=== PATIENT | female | born 1950 | race Caucasian/White ===

== ENCOUNTER 2016-08-31 13:10 | Emergency (ER) | payer OTHER ==
[~2016-08-31] VITALS: Ht 157.5 cm; Wt 65.9 kg
[~2016-08-31 13:10] MED LIST: ASPI325T45 PO; CALCTAB5 PO; CHOL100027 PO; FELO1TAB7 PO; GABA1CAP4 PO; HYDR12.55 PO; MIRT30TA3 PO; OXYC-409 PO; OXYC-57 PO
[2016-08-31 13:12] VITALS: TEMP 37.1; Ht 157.5 cm; Wt 65.9 kg
--- NOTE | 2016-08-31 14:08 | EMERGENCY ROOM VISIT NOTE ---
History First contact with patient: 13:23 Chief Complaint: SWELLING TO EXTREMITY Stated Complaint: SWELLING TO LEFT FOOT History of Present Illness The patient is a 65 year old female who presents to the Emergency Room via private vehicle referred by her family doctor with complaints of "swelling to left foot". The patient states that beginning a few days ago she noticed swelling in the left ankle and proximal foot region. She states that there has been no trauma or injury to the area. She notes minimal pain. She points to the medial aspect of the inferior left medial malleolus as the area of minimal pain. She states this is only unilateral. She does smoke. She does not take any anticoagulants, denies chest pain, shortness of breath, history of blood clots, fevers or chills. When questioned about her hypoxia, she states that she does not feel short of breath, however for the past few evenings when she lies down she notes postnasal drip creating a sensation of drowning. She states that she saw her family doctor today, Dr. Mejia who referred her here to the emergency department. She states that she has a history of septic joint in the past, and is concerned. Review of Systems A complete 10-point Review of Systems was discussed with the patient, with pertinent positives and negatives listed in the History of Present Illness. All remaining Review of Systems questions can be considered negative unless otherwise specified. Past Medical/Surgical History Medical Problems: (1) 305.1 (2) ADJUSTMENT DISORDER WITH DEPRESSED MOOD (3) Backache (4) Chronic kidney disease stage 3 (5) Closed fracture of vertebral column (6) Diverticulitis of colon (7) Essential hypertension (8) Hyperlipidemia (9) Intercostal neuralgia (10) Osteoporosis Social History Smoking Status: Current Some Day Smoker Alcohol Use: none Marital Status: Current/Historical Medications Scheduled Aspirin (Aspirin), 325 MG PO DAILY Calcium Carbonate-Vitamin D W/ (Caltrate 600 Plus), 600 MG PO DAILY Cholecalciferol (Vitamin D 1000 Unit), 1,000 INTER.UNIT PO DAILY Felodipine (Plendil), 2.5 MG PO DAILY Gabapentin (Gabapentin), 600 MG PO BID Hydrochlorothiazide (Hydrochlorothiazide), 12.5 MG PO DAILY Scheduled PRN Mirtazapine (Remeron), 30 MG PO HS PRN for Sleep Oxycodone Hcl (Oxycontin), 20 MG PO TID PRN for Pain Oxycodone/Acetaminophen 5MG/325MG (Percocet 5MG/325MG), 1 TAB PO QID PRN for Pain Allergies Coded Allergies: Cholesterol (Verified Allergy, Unknown, CHOLESTEROL MEDS, 08/31/16) Acetaminophen (Verified Adverse Reaction, Mild, NAUSEA AND ITCHING, ) Codeine (Verified Adverse Reaction, Mild, N/V, 08/31/16) Hydrocodone (Verified Adverse Reaction, Mild, NAUSEA AND ITCHING, 08/31/16) Tetracycline (Verified Adverse Reaction, Mild, N/V, 08/31/16) Physical Exam Vital Signs Date Time Temp Pulse Resp B/P (MAP) Pulse Ox O2 Delivery O2 Flow Rate FiO2 08/31/16 18:06 64 18 189/107 96 08/31/16 16:48 65 16 163/107 95 Room Air 08/31/16 13:12 37.1 79 20 130/90 92 Room Air Physical Exam VITAL SIGNS - Vital signs and nursing notes were reviewed. Patient is afebrile , blood pressure slightly elevated at 130/90, non-tachycardic and is saturating on room air 92%. GENERAL -65-year-old female appearing her stated age who is in no acute distress. Communicates well with provider and answers questions appropriately. SKIN - Without rashes. There is edema noted to the left ankle diffusely as well as the proximal foot. There is no excessive warmth, or erythema. No evidence of excoriation or laceration. LUNGS - Chest wall symmetric without accessory muscle use, intercostals retractions, or central cyanosis. Normal vesicular breath sounds CTA B/L. No wheezes, rales, or rhonchi appreciated. CARDIAC - RRR with S1/S2. No murmur, rubs, or gallops appreciated. EXTREMITIES - No clubbing or peripheral cyanosis. No pretibial edema present. She is neurovascularly intact in the left lower extremity. +5/5 strength noted in UE/LE bilaterally. Medical Decision & Procedures ER Provider Diagnostic Interpretation: CHEST ONE VIEW PORTABLE CLINICAL HISTORY: Low oxygen saturation, unilateral extremity edema COMPARISON STUDY: No previous studies for comparison. FINDINGS: The heart is mildly enlarged. There is tortuosity/ectasia of the thoracic aorta. There is no failure. There is no lobar consolidation. Linear bibasilar opacities are likely atelectatic. There are no pleural effusions. There is an old right clavicular deformity.[ IMPRESSION: 1. Cardiomegaly 2. Aortic tortuosity/ectasia 3. Bibasilar atelectasis/scarring Electronically signed by: João Whitehead M.D. 08/31/2016 2:10 PM Dictated Date/Time: 08/31/2016 2:09 PM LEFT ANKLE MIN 3 VIEWS ROUTINE CLINICAL HISTORY: Left foot/ ankle edema, No trauma. Hx septic joint. COMPARISON: None. DISCUSSION: There is bimalleolar soft tissue swelling. There is a linear avulsion fracture arising from the dorsal surface of the navicular. This is likely old. Please correlate with the patient's site of pain. IMPRESSION: 1. Linear avulsion fracture arising from the dorsal surface of the navicular. This is likely old 2. Soft tissue swelling 3. No fractures of the ankle proper are visualized. Electronically signed by: João Whitehead M.D. 08/31/2016 2:12 PM Dictated Date/Time: 08/31/2016 2:10 PM LEFT FOOT MIN 3 VIEWS ROUTINE CLINICAL HISTORY: Left foot/ ankle edema, No trauma. Hx septic joint. Pain COMPARISON: None. DISCUSSION: Mild soft tissue edema. Moderate degenerative change of the articular services throughout. No evidence for acute bony abnormality. Bunion deformity distal first metatarsal with hallux valgus configuration. There is no evidence for soft tissue swelling. IMPRESSION: Degenerative change. Soft tissue edema. No acute bony abnormality. The above report was generated using voice recognition software. It may contain grammatical, syntax or spelling errors. Electronically signed by: Luis Galloway M.D. 08/31/2016 2:11 PM Dictated Date/Time: 08/31/2016 2:10 PM ULTRASOUND LEFT VENOUS DOPP LOWER EXT UNILAT CLINICAL HISTORY: Left leg edema COMPARISON STUDY: No previous studies for comparison. FINDINGS: Real-time and color flow Doppler imaging were performed. Flow was seen within the femoral, popliteal and calf veins with no intraluminal thrombus demonstrated. The saphenous vein is patent. There are patent left calf varicosities. There is a left inguinal lymph node measuring 22 x 16 x 8 mm. IMPRESSION: No evidence of left lower extremity DVT. Electronically signed by: João Whitehead M.D. 08/31/2016 3:35 PM Dictated Date/Time: 08/31/2016 3:34 PM Laboratory Results 08/31/16 16:40 Red Blood Count 3.92, Mean Corpuscular Volume 93.6, Mean Corpuscular Hemoglobin 31.4, Mean Corpuscular Hemoglobin Concent 33.5, Mean Platelet Volume 9.5, Neutrophils (%) (Auto) 52.3, Lymphocytes (%) (Auto) 37.1, Monocytes (%) (Auto) 6.3, Eosinophils (%) (Auto) 3.3, Basophils (%) (Auto) 1.0, Neutrophils # (Auto) 3.59, Lymphocytes # (Auto) 2.55, Monocytes # (Auto) 0.43, Eosinophils # (Auto) 0.23, Basophils # (Auto) 0.07 08/31/16 16:40 Test 08/31/16 16:40 White Blood Count 6.87 K/uL (4.8-10.8) Red Blood Count 3.92 M/uL (4.2-5.4) Hemoglobin 12.3 g/dL (12.0-16.0) Hematocrit 36.7 % (37-47) Mean Corpuscular Volume 93.6 fL (80-100) Mean Corpuscular Hemoglobin 31.4 pg (25-34) Mean Corpuscular Hemoglobin Concent 33.5 g/dl (32-36) Platelet Count 224 K/uL (130-400) Mean Platelet Volume 9.5 fL (7.4-10.4) Neutrophils (%) (Auto) 52.3 % Lymphocytes (%) (Auto) 37.1 % Monocytes (%) (Auto) 6.3 % Eosinophils (%) (Auto) 3.3 % Basophils (%) (Auto) 1.0 % Neutrophils # (Auto) 3.59 K/uL (1.4-6.5) Lymphocytes # (Auto) 2.55 K/uL (1.2-3.4) Monocytes # (Auto) 0.43 K/uL (0.11-0.59) Eosinophils # (Auto) 0.23 K/uL (0-0.5) Basophils # (Auto) 0.07 K/uL (0-0.2) RDW Standard Deviation 46.2 fL (36.4-46.3) RDW Coefficient of Variation 13.6 % (11.5-14.5) Immature Granulocyte % (Auto) 0.0 % Immature Granulocyte # (Auto) 0.00 K/uL (0.00-0.02) Anion Gap 6.0 mmol/L (3-11) Est Creatinine Clear Calc Drug Dose 58.7 ml/min Estimated GFR () 83.9 Estimated GFR (Non- 72.4 BUN/Creatinine Ratio 21.3 (10-20) Calcium Level 9.7 mg/dl (8.5-10.1) Magnesium Level 1.7 mg/dl (1.8-2.4) Total Bilirubin 0.2 mg/dl (0.2-1) Aspartate Amino Transf (AST/SGOT) 44 U/L (15-37) Alanine Aminotransferase (ALT/SGPT) 43 U/L (12-78) Alkaline Phosphatase 105 U/L (45-117) Total Protein 7.7 gm/dl (6.4-8.2) Albumin 4.0 gm/dl (3.4-5.0) Globulin 3.7 gm/dl (2.5-4.0) Albumin/Globulin Ratio 1.1 (0.9-2) Medications Administered Medications (Trade) Dose Ordered Sig/Kyra Route Start Time Stop Time Status Last Admin Dose Admin Oxycodone/ Acetaminophen (Percocet 5-325mg Tab) 1 tab NOW STAT PO 08/31/16 17:16 08/31/16 17:17 DC 08/31/16 17:24 1 TAB Medical Decision Patient was seen and evaluated as above. After obtaining a thorough history and physical examination radiographs was obtained of the chest, foot and ankle. Chest x-ray was obtained because the patient noted that the past few days she felt that when she laid down she felt as though she may be drowning. She states this is likely secondary to her postnasal drip. X-rays show a questionable avulsion fracture, which I do not believe is new. The patient denies any recent injury or trauma. There is only minimal pain. Patient is more concerned about the swelling. I discussed the case with my attending, who also personally evaluated the patient. Decision was made to obtain baseline labs. CBC reveals no leukocytosis, slight anemia noted. Sodium slightly low at 134, creatinine 0.84, mag slightly low at 1.4 and AST high at 44. I suspect the patient is likely experiencing soft tissue swelling other secondary to a small injury without fracture however the exact etiology is not identified. I do not suspect any emergent etiology or infection. No evidence of DVT. Patient is to elevate this region and use ice and NSAIDs over the next few days. She is to return with worsening. She is to follow-up with her family doctor soon as possible. She was educated upon worrisome symptoms which to return, had questions were discharge, and was discharged home in good condition. I would like to specifically state that I do not suspect septic joint in this case. In evaluation treatment this patient following differential diagnoses were entertained: DVT, PE, CHF, septic joint, among others. Impression Primary Impression: Swelling of left extremity Departure Information Dispostion Home / Self-Care Condition GOOD Referrals Bishnu Mejia M.D. (PCP) Patient Instructions My [facility] Additional Instructions You have been treated in the Emergency Department for a left Ankle swelling/ foot swelling. You have received pain medicine in the emergency department which impairs your ability to operate a vehicle. It is illegal for you to drive after receiving these medicines. For pain control, you can use the following [id number] medicines (if >12 yo): Please do not take tylenol with the perocet you were previously prescribed. - Regular strength (200 mg/tab) Advil (ibuprofen) 1-2 tabs every 4-6 hours as needed. Do not exceed a dose of 3200 mg per day. If this is a recent injury (<24 hrs), ice can be applied to the area of pain for the first 3 days to help decrease pain and inflammation. Please call your family doctor to schedule follow-up regarding today's visit. Please elevate and ice your foot as able. Return to the Emergency Department if your current symptoms worsen despite treatment course outlined above, or if you develop any of the following symptoms : intractable pain despite aforementioned treatment course or new onset of numbness or tingling of the foot. Please return to the emergency department with any new/concerning symptoms.
--- NOTE | 2016-08-31 14:11 | DIAGNOSTIC IMAGING REPORT ---
CHEST ONE VIEW PORTABLE CLINICAL HISTORY: Low oxygen saturation, unilateral extremity edema COMPARISON STUDY: No previous studies for comparison. FINDINGS: The heart is mildly enlarged. There is tortuosity/ectasia of the thoracic aorta. There is no failure. There is no lobar consolidation. Linear bibasilar opacities are likely atelectatic. There are no pleural effusions. There is an old right clavicular deformity.[ IMPRESSION: 1. Cardiomegaly 2. Aortic tortuosity/ectasia 3. Bibasilar atelectasis/scarring Electronically signed by: João Whitehead M.D. 08/31/2016 2:10 PM Dictated Date/Time: 08/31/2016 2:09 PM
--- NOTE | 2016-08-31 14:12 | DIAGNOSTIC IMAGING REPORT ---
LEFT FOOT MIN 3 VIEWS ROUTINE CLINICAL HISTORY: Left foot/ ankle edema, No trauma. Hx septic joint. Pain COMPARISON: None. DISCUSSION: Mild soft tissue edema. Moderate degenerative change of the articular services throughout. No evidence for acute bony abnormality. Bunion deformity distal first metatarsal with hallux valgus configuration. There is no evidence for soft tissue swelling. IMPRESSION: Degenerative change. Soft tissue edema. No acute bony abnormality. The above report was generated using voice recognition software. It may contain grammatical, syntax or spelling errors. Electronically signed by: Luis Galloway M.D. 08/31/2016 2:11 PM Dictated Date/Time: 08/31/2016 2:10 PM
--- NOTE | 2016-08-31 14:13 | DIAGNOSTIC IMAGING REPORT ---
LEFT ANKLE MIN 3 VIEWS ROUTINE CLINICAL HISTORY: Left foot/ ankle edema, No trauma. Hx septic joint. COMPARISON: None. DISCUSSION: There is bimalleolar soft tissue swelling. There is a linear avulsion fracture arising from the dorsal surface of the navicular. This is likely old. Please correlate with the patient's site of pain. IMPRESSION: 1. Linear avulsion fracture arising from the dorsal surface of the navicular. This is likely old 2. Soft tissue swelling 3. No fractures of the ankle proper are visualized. Electronically signed by: João Whitehead M.D. 08/31/2016 2:12 PM Dictated Date/Time: 08/31/2016 2:10 PM
[2016-08-31] MEDS ORDERED: CALCTAB7 PO (14:34)
[2016-08-31] MEDS ORDERED: OXYC20TA50 PO (14:35)
--- NOTE | 2016-08-31 15:36 | DIAGNOSTIC IMAGING REPORT ---
ULTRASOUND LEFT VENOUS DOPP LOWER EXT UNILAT CLINICAL HISTORY: Left leg edema COMPARISON STUDY: No previous studies for comparison. FINDINGS: Real-time and color flow Doppler imaging were performed. Flow was seen within the femoral, popliteal and calf veins with no intraluminal thrombus demonstrated. The saphenous vein is patent. There are patent left calf varicosities. There is a left inguinal lymph node measuring 22 x 16 x 8 mm. IMPRESSION: No evidence of left lower extremity DVT. Electronically signed by: João Whitehead M.D. 08/31/2016 3:35 PM Dictated Date/Time: 08/31/2016 3:34 PM
--- NOTE | 2016-08-31 16:19 | EMERGENCY ROOM VISIT NOTE ---
ED Visit Note First contact with patient: 13:23 65-year-old female with marked swelling of her left leg is fully evaluated by Juan R Holt PA-C. Please see his note. I also independently evaluated the patient. The patient does not appear to have a DVT on ultrasound. She does have an enlarged left inguinal node which may be causing some of the swelling. Blood work was also evaluated.
[2016-08-31 16:54] LABS: BASO ABS # 0.07 K/uL (0-0.2); COMPLETE YES; EOS % 3.3 %; HEMATOCRIT 36.7 % (37-47); LYMPH % 37.1 %; LYMPH ABS # 2.55 K/uL (1.2-3.4); MEAN CELL VOLUME 93.6 fL (80-100); MEAN CORPUSCULAR HEMOGLOBIN 31.4 pg (25-34); MEAN CORPUSCULAR HGB CONC 33.5 g/dl (32-36); MEAN PLATELET VOLUME 9.5 fL (7.4-10.4); MONO % 6.3 %; NEUT % 52.3 %; PLATELET COUNT 224 K/uL (130-400); RED BLOOD COUNT 3.92 M/uL (4.2-5.4); WHITE BLOOD COUNT 6.87 K/uL (4.8-10.8)
[2016-08-31] MEDS ORDERED: OXYCODONE/ACETAMINOPHEN 5-325 TAB PO STA (17:16)
[2016-08-31 17:21] LABS: BUN/CREATININE RATIO 21.3 (10-20); CALCIUM 9.7 mg/dl (8.5-10.1); CREATININE 0.84 mg/dl (0.60-1.20); MAGNESIUM 1.7 mg/dl (1.8-2.4); POTASSIUM 3.6 mmol/L (3.5-5.1)
[2016-08-31 17:24] LABS: ALB/GLOB RATIO 1.1 (0.9-2)
[2016-08-31 18:06] VITALS: BP 189/107; PULSE 64; O2SAT 96
== END 2016-08-31 18:06 | disposition home or self-care (01) ==
LOC: C.EDB 13:13 → C.EDD 18:06
DX: M79.89 Other specified soft tissue disorders (principal); N18.3 Chronic kidney disease, stage 3 (moderate); I12.9 Hypertensive chronic kidney disease with stage 1 through stage 4 chronic kidney disease, or unspecified chronic kidney disease; K57.92 Diverticulitis of intestine, part unspecified, without perforation or abscess without bleeding; E78.5 Hyperlipidemia, unspecified; F43.21 Adjustment disorder with depressed mood; M81.0 Age-related osteoporosis without current pathological fracture; F17.210 Nicotine dependence, cigarettes, uncomplicated; Z79.82 Long term (current) use of aspirin; Z79.899 Other long term (current) drug therapy

== ENCOUNTER 2018-07-17 14:38 | Inpatient (IN) ==
--- OUTSIDE RECORDS SUMMARY | 2018-07-17 14:40 | External Medical Summary | Continuity of Care Document ---
:1950 Author Name Maia Nielson, Provider Address Unavailable Unavailable , Care Team Providers Name Role Phone Kae Schulz M.D. Unavailable [email or web address] Unavailable Unavailable Problems Active medical history not documented Allergies and Adverse Reactions Allergy history not documented Medications Medications not documented Procedures Procedures not documented Immunizations Immunizations not documented Plan of Treatment Planned Observations Planned Goals not documented Results No Known Results Results not documented
[2018-07-17] MEDS ORDERED: NALOXONE HCL 0.4 MG/1 ML VIAL/CARP IV STA (14:53)
[2018-07-17] MEDS ORDERED: SODIUM CHLORIDE 0.9% 1000ML 1,000 ML IV SCH (15:00)
[2018-07-17 15:49] LABS: Basophils # (auto) 0.03 K/uL (0-0.2); Basophils % (auto) 0.3 %; Eosinophils # (auto) 0.07 K/uL (0-0.5); Eosinophils % (auto) 0.7 %; Hematocrit (blood only) 34.1 % (37-47); Hemoglobin 11.9 g/dL (12.0-16.0); Immature Granulocytes # (auto) 0.02 K/uL (0.00-0.02); Immature Granulocytes % (auto) 0.2 %; Lymphocytes # (auto) 1.92 K/uL (1.2-3.4); Lymphocytes % (auto) 18.6 %; Mean Corpuscular Hgb Conc 34.9 g/dL (32-36); Mean Corpuscular Volume 87.7 fL (80-100); Mean Platelet Volume 9.8 fL (7.4-10.4); Monocytes # (auto) 0.71 K/uL (0.11-0.59); Monocytes % (auto) 6.9 %; Neutrophils % (auto) 73.3 %; Platelet Count 212 K/uL (130-400); RDW Coefficient of Variation 13.6 % (11.5-14.5); RDW Standard Deviation 43.4 fL (36.4-46.3); Red Blood Count 3.89 M/uL (4.2-5.4); White Blood Count 10.35 K/uL (4.8-10.8)
[2018-07-17 16:08] LABS: Albumin Level 4.3 gm/dl (3.4-5.0); BUN Creatinine Ratio 12.9 (10-20); Calcium 8.8 mg/dl (8.5-10.1); Creatinine Clr Calc Pharmacy 12.4 ml/min; Est GFR (African American) 12.2; Est GFR (Non-African American) 10.6; Magnesium 1.3 mg/dl (1.8-2.4); Potassium 3.2 mmol/L (3.5-5.1)
[2018-07-17 16:18] LABS: Albumin Globulin Ratio 1.2 (0.9-2); Bilirubin,Total 0.4 mg/dl (0.2-1); Globulin 3.5 gm/dl (2.5-4.0); Total Protein 7.8 gm/dl (6.4-8.2)
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
--- NOTE | 2018-07-17 16:52 | XRay Report ---
SINGLE VIEW CHEST CLINICAL HISTORY: Generalized weakness. FINDINGS: 2 AP, portable, upright chest radiographs are compared to study dated 08/31/2016. Correlatio n is made with CT scan of the thoracic spine dated 02/14/2012. The examination is degraded by portabl e technique and patient rotation. The cardiomediastinal heart is enlarged there is atherosclerotic c alcification with uncoiling of the thoracic aorta. Mild aneurysmal dilatation of the ascending thorac ic aorta is likely unchanged from previous. The pulmonary vasculature is noncongested. There is bibas ilar scarring/atelectasis. No airspace consolidation or large pleural effusion is identified. No pneu mothorax is seen. The skeletal structures are osteopenic. There is chronic posttraumatic deformity of the right clavicle. There is evidence of a compression deformity an previous vertebroplasty in the t horacic spine. IMPRESSION: 1. Cardiomegaly with no acute cardiopulmonary abnormality. 2. Mild aneurysmal dilatation is again noted involving the ascending thoracic aorta. Electronically signed by: Mateus Munoz M.D. 07/17/2018 4:51 PM
[2018-07-17 16:53] LABS: Appearance Urine Clear (Clear); Bacteria Urine Automated Negative (Negative); Bilirubin Urine Negative (Negative); Blood Urine 3+ (Negative); Color Urine Dark Yellow; Epithelial Cell Urine Auto >30 /lpf (0-5); Glucose Urine UA Negative (Negative); Ketones Urine Trace (Negative); Leukocyte Esterase Urine 2+ (Negative); Nitrite Urine Negative (Negative); Protein Urine 1+ (Negative); Specific Gravity Urine 1.015 (1.000-1.030); Urobilinogen Urine Negative (Negative)
[2018-07-17] MEDS: MAGNESIUM SULFATE / D5W 1 GM/100 ML BAG IV SCH ×2 (16:53→22:52)
[2018-07-17 17:14] LABS: Renal Epithelial Cells Urine 0-5 /lpf (0-5)
--- NOTE | 2018-07-17 17:26 | Emergency Department Note ---
Entered by Tashia Yates acting as a scribe for Silvina Paz MD History of Present Illness General Chief complaint: Illness Source: patient and other (nursing staff) History of Present Illness Provider complaint: confusion Onset (ago): hour(s) (today) Location: head Pain Consistency: + constant Quality: + other (confusion) Associated symptoms: + other (recent fall ) The patient is a 67 year old female who presents to the Emergency Department w ith confusion today. The patient states that she dropped her daughter off in [place] and then drove to [employer] today. She states that she did not eat today. The patient reports a recent fall. She states that she is unsure what time she last took her medication. Per nursing staff, the patient was found slumped over her steering wheel with the car on while parked in a cemetery visiting her nephew's grave site. Nursing staff states that the patient was holding a cigarette and had the air compressor operator on her lap. Nursing staff states that the patient was arousable. Per nursing staff, the patient has a history of hypertension and chronic back pain for which she takes oxycodone and hydrocodone. Home Medications Home Medications Medication Instructions Recorded Confirmed Type Caltrate 600-D Plus Minerals 1 tab PO DAILY 07/17/18 07/17/18 History aspirin [Aspirin Low Dose] 81 mg PO DAILY 07/17/18 07/17/18 History cholecalciferol (vitamin D3) 1,000 unit PO DAILY 07/17/18 07/17/18 History gabapentin 600 mg PO BID 07/17/18 07/17/18 History mirtazapine 22.5 mg PO DAILY 07/17/18 07/17/18 History magnesium oxide 400 mg PO QAM 30 Days #30 cap 07/19/18 Rx Allergies Allergy/AdvReac Type Severity Reaction Status Date / Time acetaminophen AdvReac Mild NAUSEA AND Verified 07/17/18 15:16 ITCHING codeine AdvReac Mild N/V Verified 07/17/18 15:16 hydrocodone AdvReac Mild NAUSEA AND Verified 07/17/18 15:16 ITCHING tetracycline AdvReac Mild N/V Verified 07/17/18 15:16 Cholesterol Allergy Unknown CHOLESTEROL Uncoded 07/17/18 15:16 MEDS Past Med/Surg History Medical History Back pain (Chronic) HTN (hypertension) (Chronic) Social History Preferred Language: [place] Communication Ability: Effective Beliefs That Will Affect Care: None Current Living Situation: Family Feels Safe at Home: Yes Smoking Status: Current every day smoker Review of Systems See HPI for pertinent positives & negatives. and A total of 10 systems reviewed and were otherwise negative Physical Exam Vital Signs Vital Signs - 24 hr 07/17/18 14:41 07/17/18 14:49 07/17/18 15:17 Temperature 36.7 C Temperature Source Oral Sepsis Recent Fever Within 48 Hours No Sepsis New/Unexplained Change in Mental Status No Sepsis Action Taken by Nursing No Action Required Pulse Rate 92 H 89 86 Pulse Rate from SpO2 Sensor 95 H 88 Respiratory Rate 19 18 28 H Respiratory Effort / Characteristics Non-Labored Respiratory Depth Normal Blood Pressure 135/104 H 134/104 H 142/96 H Blood Pressure Mean 114 114 111 Pulse Oximetry 93 88 L 96 Oxygen Delivery Method Room Air 07/17/18 15:19 07/17/18 15:30 07/17/18 15:50 Temperature Temperature Source Sepsis Recent Fever Within 48 Hours Sepsis New/Unexplained Change in Mental Status Sepsis Action Taken by Nursing Pulse Rate 87 83 Pulse Rate from SpO2 Sensor 86 79 92 H Respiratory Rate 20 23 24 Respiratory Effort / Characteristics Respiratory Depth Blood Pressure 170/113 H Blood Pressure Mean 132 Pulse Oximetry 95 86 L 98 Oxygen Delivery Method 07/17/18 15:51 07/17/18 16:10 07/17/18 16:30 Temperature Temperature Source Sepsis Recent Fever Within 48 Hours Sepsis New/Unexplained Change in Mental Status Sepsis Action Taken by Nursing Pulse Rate 79 Pulse Rate from SpO2 Sensor 92 H 81 78 Respiratory Rate 23 20 Respiratory Effort / Characteristics Respiratory Depth Blood Pressure Blood Pressure Mean Pulse Oximetry 99 96 Oxygen Delivery Method 07/17/18 16:31 Temperature Temperature Source Sepsis Recent Fever Within 48 Hours Sepsis New/Unexplained Change in Mental Status Sepsis Action Taken by Nursing Pulse Rate 80 Pulse Rate from SpO2 Sensor 79 Respiratory Rate 17 Respiratory Effort / Characteristics Respiratory Depth Blood Pressure 126/87 Blood Pressure Mean 100 Pulse Oximetry 92 Oxygen Delivery Method Vital signs reviewed. General: Well-appearing female, in no significant distress. HEENT: No scleral icterus, PERRLA, neck supple. Atraumatic. Cardiovascular: Regular rate and rhythm, no extra sounds. Pulmonary: Clear to auscultation bilaterally, normal work of breathing. Abdomen: Soft, nontender, nondistended, positive bowel sounds. Musculoskeletal: Atraumatic, no peripheral edema. Neurologic: Slurred speech. Answers most questions appropriately. Ataxia on finger to nose, left greater than right. Pinpoint pupils bilaterally. Skin: Warm, dry, no rash Course 1450: The patient was evaluated in room A9B. A history and physical were performed. 1623: I updated the patient who verbalized agreement of the treatment plan. 1627: I discussed the patient's case with La Yeh, admitting to Dr. Trejo, who will evaluate the patient for further management. Consultations Consultation #1: La Yeh Time: 16:27 Administered Medications Discontinued Medications Sodium Chloride (Nss 1000ml) 1,000 mls @ 999 mls/hr IV .Q1H1M MAHAMED Stop: 07/17/18 16:00 Last Infusion: 07/17/18 16:55 Dose: 0 mls/hr Documented by: [id number] Admin: 07/17/18 15:53 Dose: 999 mls/hr Documented by: [id number] Magnesium Sulfate/Dextrose (Magnesium Sulfate / D5w) 1 gm in 100 mls @ 100 mls/hr IV Q1H MAHAMED Stop: 07/17/18 18:29 Last Admin: 07/17/18 22:52 Dose: Not Given Documented by: [id number] Infusion: 07/17/18 17:56 Dose: 0 mls/hr Documented by: [id number] Admin: 07/17/18 16:53 Dose: 100 mls/hr Documented by: [id number] Potassium Chloride (K Wes / Wtr) 10 meq in 100 mls @ 100 mls/hr IV Q1H MAHAMED Stop: 07/17/18 18:29 Last Admin: 07/17/18 22:51 Dose: Not Given Documented by: [id number] Infusion: 07/17/18 19:03 Dose: 0 mls/hr Documented by: [id number] Admin: 07/17/18 18:01 Dose: 100 mls/hr Documented by: [id number] Sodium Chloride (Nss) 500 mls @ 100 mls/hr IV .Q5H MAHAMED Stop: 08/16/18 17:44 Last Infusion: 07/18/18 15:22 Dose: 0 mls/hr Documented by: [id number] Admin: 07/18/18 15:11 Dose: Not Given Documented by: [id number] Admin: 07/18/18 11:50 Dose: 100 mls/hr Documented by: [id number] Infusion: 07/18/18 08:24 Dose: 100 mls/hr Documented by: [id number] Admin: 07/18/18 03:24 Dose: 100 mls/hr Documented by: [id number] Infusion: 07/18/18 03:24 Dose: 100 mls/hr Documented by: [id number] Admin: 07/18/18 00:04 Dose: 100 mls/hr Documented by: [id number] Infusion: 07/18/18 00:04 Dose: 100 mls/hr Documented by: [id number] Admin: 07/17/18 20:19 Dose: 100 mls/hr Documented by: [id number] Magnesium Sulfate/Dextrose (Magnesium Sulfate / D5w) 1 gm in 100 mls @ 100 mls/hr IV ONE STA Stop: 07/17/18 22:20 Last Infusion: 07/18/18 13:37 Dose: 0 mls/hr Documented by: [id number] Infusion: 07/18/18 00:10 Dose: 0 mls/hr Documented by: [id number] Admin: 07/18/18 00:04 Dose: 100 mls/hr Documented by: [id number] Potassium Chloride (K Wes / Wtr) 10 meq in 100 mls @ 100 mls/hr IV ONE STA Stop: 07/17/18 22:20 Last Infusion: 07/17/18 23:55 Dose: 0 mls/hr Documented by: [id number] Admin: 07/17/18 22:52 Dose: 100 mls/hr Documented by: [id number] Potassium Chloride (K Wes / Wtr) 10 meq in 100 mls @ 100 mls/hr IV Q1H MAHAMED Stop: 07/18/18 04:04 Last Infusion: 07/18/18 04:25 Dose: 0 mls/hr Documented by: [id number] Admin: 07/18/18 03:23 Dose: 100 mls/hr Documented by: [id number] Infusion: 07/18/18 03:10 Dose: 100 mls/hr Documented by: [id number] Admin: 07/18/18 02:10 Dose: 100 mls/hr Documented by: [id number] Sodium Chloride (Nss 1000ml) 1,000 mls @ 80 mls/hr IV .[id number] MAHAMED Stop: 08/17/18 16:14 Last Infusion: 07/19/18 10:14 Dose: 0 mls/hr Documented by: [id number] Admin: 07/19/18 05:33 Dose: 80 mls/hr Documented by: [id number] Infusion: 07/19/18 04:56 Dose: 80 mls/hr Documented by: [id number] Admin: 07/18/18 16:26 Dose: 80 mls/hr Documented by: [id number] Magnesium Sulfate/Dextrose (Magnesium Sulfate / D5w) 1 gm in 100 mls @ 100 mls/hr IV Q1H MAHAMED Stop: 07/19/18 12:29 Last Infusion: 07/19/18 12:42 Dose: 0 mls/hr Documented by: [id number] Admin: 07/19/18 11:41 Dose: 100 mls/hr Documented by: [id number] Infusion: 07/19/18 11:39 Dose: 100 mls/hr Documented by: [id number] Admin: 07/19/18 10:39 Dose: 100 mls/hr Documented by: [id number] Potassium Acetate 10 meq/ (Sodium Chloride) 105 mls @ 105 mls/hr IV Q1H MAHAMED Stop: 07/19/18 12:29 Last Infusion: 07/19/18 12:55 Dose: 0 mls/hr Documented by: [id number] Admin: 07/19/18 11:52 Dose: 105 mls/hr Documented by: [id number] Infusion: 07/19/18 11:52 Dose: 0 mls/hr Documented by: [id number] Admin: 07/19/18 10:52 Dose: 105 mls/hr Documented by: [id number] Magnesium Oxide (Mag-Ox) 400 mg PO QAM MAHAMED Stop: 08/18/18 09:59 Last Admin: 07/19/18 10:46 Dose: 400 mg Documented by: [id number] Naloxone HCl (Narcan) 0.4 mg IV NOW STA Stop: 07/17/18 14:54 Last Admin: 07/17/18 15:53 Dose: 0.4 mg Documented by: [id number] Potassium Chloride (Klor-Con M10) 60 meq PO NOW STA Stop: 07/18/18 02:06 Last Admin: 07/18/18 03:18 Dose: 60 meq Documented by: [id number] Potassium Chloride (Klor-Con M20) 40 meq PO NOW STA Stop: 07/18/18 07:41 Last Admin: 07/18/18 08:32 Dose: 40 meq Documented by: [id number] Potassium Chloride (Klor-Con M20) 40 meq PO NOW STA Stop: 07/19/18 09:51 Last Admin: 07/19/18 10:34 Dose: 40 meq Documented by: [id number] Medical Decision Making Differential Diagnosis Differential includes acute coronary syndrome, myocardial infarction, CVA, TIA, anemia, infection, pneumonia, UTI, pyelonephritis, poor nutrition, dehydration, electrolyte disturbance,hypoglycemia. Medical Records Attestation: I reviewed the patient's medical records. Home Medications Current Medication List: was personally reviewed by me Laboratory Data Attestation: I reviewed the patient's lab results. Result diagrams: 07/19/18 06:50 07/19/18 13:56 Lab Results 07/17/18 07/17/18 07/17/18 Range/Units 15:20 15:20 15:20 WBC 10.35 (4.8-10.8) K/uL RBC 3.89 L (4.2-5.4) M/uL Hgb 11.9 L (12.0-16.0) g/dL Hct 34.1 L (37-47) % MCV 87.7 (80-100) fL MCH 30.6 (25-34) pg MCHC 34.9 (32-36) g/dL RDW Std Deviation 43.4 (36.4-46.3) fL RDW Coeff of [place] 13.6 (11.5-14.5) % Plt Count 212 (130-400) K/uL MPV 9.8 (7.4-10.4) fL Immature Gran % (Auto) 0.2 % Neut % (Auto) 73.3 % Lymph % (Auto) 18.6 % [place] % (Auto) 6.9 % Eos % (Auto) 0.7 % Baso % (Auto) 0.3 % Immature Gran # (Auto) 0.02 (0.00-0.02) K/uL Neut # (Auto) 7.60 H (1.4-6.5) K/uL Lymph # (Auto) 1.92 (1.2-3.4) K/uL [place] # (Auto) 0.71 H (0.11-0.59) K/uL Eos # (Auto) 0.07 (0-0.5) K/uL Baso # (Auto) 0.03 (0-0.2) K/uL ESR (0-21) mm/hr Sodium 126 L (136-145) mmol/L Potassium 3.2 L (3.5-5.1) mmol/L Chloride 89 L (98-107) mmol/L Carbon Dioxide 23 (21-32) mmol/L Anion Gap 13.0 H (3-11) BUN 53 H (7-18) mg/dl Creatinine 4.08 H (0.6-1.2) mg/dl Est Cr Clr Drug Dosing 12.4 ml/min Est GFR ( Amer) 12.2 Est GFR (Non-Af Amer) 10.6 BUN/Creatinine Ratio 12.9 (10-20) Glucose 101 H (70-99) mg/dl Calcium 8.8 (8.5-10.1) mg/dl Magnesium Cancelled 1.3 L Total Bilirubin 0.4 (0.2-1) mg/dl AST 150 H (15-37) U/L ALT 39 (12-78) U/L Alkaline Phosphatase 83 (45-117) U/L Total Protein 7.8 (6.4-8.2) gm/dl Albumin 4.3 (3.4-5.0) gm/dl Globulin 3.5 (2.5-4.0) gm/dl Albumin/Globulin Ratio 1.2 (0.9-2) TSH 0.770 (0.300-4.500) uIu/ml Ethyl Alcohol mg/dL (0-3) mg/dl 07/17/18 07/17/18 Range/Units 15:20 15:20 WBC (4.8-10.8) K/uL RBC (4.2-5.4) M/uL Hgb (12.0-16.0) g/dL Hct (37-47) % MCV (80-100) fL MCH (25-34) pg MCHC (32-36) g/dL RDW Std Deviation (36.4-46.3) fL RDW Coeff of [place] (11.5-14.5) % Plt Count (130-400) K/uL MPV (7.4-10.4) fL Immature Gran % (Auto) % Neut % (Auto) % Lymph % (Auto) % [place] % (Auto) % Eos % (Auto) % Baso % (Auto) % Immature Gran # (Auto) (0.00-0.02) K/uL Neut # (Auto) (1.4-6.5) K/uL Lymph # (Auto) (1.2-3.4) K/uL [place] # (Auto) (0.11-0.59) K/uL Eos # (Auto) (0-0.5) K/uL Baso # (Auto) (0-0.2) K/uL ESR 13 (0-21) mm/hr Sodium (136-145) mmol/L Potassium (3.5-5.1) mmol/L Chloride (98-107) mmol/L Carbon Dioxide (21-32) mmol/L Anion Gap (3-11) BUN (7-18) mg/dl Creatinine (0.6-1.2) mg/dl Est Cr Clr Drug Dosing ml/min Est GFR ( Amer) Est GFR (Non-Af Amer) BUN/Creatinine Ratio (10-20) Glucose (70-99) mg/dl Calcium (8.5-10.1) mg/dl Magnesium Total Bilirubin (0.2-1) mg/dl AST (15-37) U/L ALT (12-78) U/L Alkaline Phosphatase (45-117) U/L Total Protein (6.4-8.2) gm/dl Albumin (3.4-5.0) gm/dl Globulin (2.5-4.0) gm/dl Albumin/Globulin Ratio (0.9-2) TSH (0.300-4.500) uIu/ml Ethyl Alcohol mg/dL < 3.0 (0-3) mg/dl Imaging Data Radiologist's Impression: Radiology results as stated below per my review and the radiologist's interpretation: CT SCAN OF THE BRAIN WITHOUT IV CONTRAST CLINICAL HISTORY: Change in mental status. Slurred speech. COMPARISON STUDY: CT of the brain dated 09/17/2011. TECHNIQUE: Unenhanced axial CT scan of the brain is performed from the vertex to the skull base. A dose lowering technique was utilized adhering to the principles of ALARA. CT DOSE: 537.48 mGy.cm FINDINGS: Brain parenchyma: There are age-related involutional changes noting mild subcortical and periventricular microangiopathic change. There is no hemorrhage, mass effect, or evidence of acute territorial ischemia by CT criteria. Right cerebellar encephalomalacia is unchanged and consistent with a remote insult. Hernandez-white matter differentiation is preserved. No extra-axial fluid collection is seen. Ventricles, sulci, cisterns: Prominent secondary to involutional change. Intracranial vasculature: There is atherosclerotic calcification of the cavernous carotid and vertebral arteries. Calvarium: Unremarkable. Sinuses and mastoids: The visualized paranasal sinuses are clear. The mastoid air cells are well pneumatized. Orbits: The bony orbits are grossly intact. IMPRESSION: There is no hemorrhage, mass effect, or evidence of acute territorial ischemia by CT criteria. Electronically signed by: Mateus Munoz M.D. 07/17/2018 4:22 PM SINGLE VIEW CHEST CLINICAL HISTORY: Generalized weakness. FINDINGS: 2 AP, portable, upright chest radiographs are compared to study dated 08/31/2016. Correlation is made with CT scan of the thoracic spine dated 02/14/2012. The examination is degraded by portable technique and patient rotation. The cardiomediastinal heart is enlarged there is atherosclerotic calcification with uncoiling of the thoracic aorta. Mild aneurysmal dilatation of the ascending thoracic aorta is likely unchanged from previous. The pulmonary vasculature is noncongested. There is bibasilar scarring/atelectasis. No airspace consolidation or large pleural effusion is identified. No pneumothorax is seen. The skeletal structures are osteopenic. There is chronic posttraumatic deformity of the right clavicle. There is evidence of a compression deformity an previous vertebroplasty in the thoracic spine. IMPRESSION: 1. Cardiomegaly with no acute cardiopulmonary abnormality. 2. Mild aneurysmal dilatation is again noted involving the ascending thoracic aorta. Electronically signed by: Mateus Munoz M.D. 07/17/2018 4:51 PM ECG Data Attestation: I personally reviewed and interpreted this ECG as follows: Indication: altered mental status Rate (beats per minute): 79 Rhythm: normal sinus Findings: + other (poor quality baseline, QTC 449) and + nonspecific-ST abn Blood Pressure Blood Pressure Findings: Elevated blood pressure Blood Pressure Disposition: further management by hospitalist MDM Narrative This pt was evaluated and appeared to be in no distress. IV access was obtained and lab work was drawn. Pt was placed on the director of cardiac cath lab. IV narcan was administered with minimal improvement. Pt has missing Oxy that she "puts in a safe" at home. IVF were administered. Lab work reveals a significant renal failure with creat of 4.08, low mag and potassium. She was repleted. Previous was 2016 and normal in [facility] system. CT head is negative for acute abnl. CXR is c/w previous thoracic aneurysmal dilation. I suspect the pt has been overusing her Rx opioids. She is dehydrated and sitting in a vehicle at a cemetary in drive. She had a cigarette and a air compressor operator. There is no family present, although police are involved. Dr Ruff of the hospitalist was consulted through La Chen PA-C. They will evaluate for further management. Impression & Plan Acute renal failure (ARF), Hyponatremia, Hypokalemia, Dehydration, Narcotic abuse Discharge Plan Visit Data *Final* Discharge Date/Time: 07/17/18 18:17 Chief Complaint: Illness ED Provider: Silvina Paz Discharge Problem: Acute renal failure (ARF), Hyponatremia, Hypokalemia, Dehydration, Narcotic abuse Patient Disposition: Admitted As Inpatient Condition: Good Discharge Instructions Interventions: ED Discharge Assessment Last Done: 07/17/18 18:17 Discharge Problem: Acute renal failure (ARF) Qualifiers: Acute renal failure type: unspecified Qualified Code(s): N17.9 - Acute kidney failure, unspecified The scribe's documentation has been prepared under my direction and personally reviewed by me in its entirety. I confirm that the note above accurately reflects all work, treatment, procedures, and medical decision making performed by me.
[2018-07-17 17:31] LABS: Amphetamines+Metham, Urine Neg (Neg); Barbiturates, Urine Neg (Neg); Benzodiazepine, Urine Neg (Neg); Cocaine, Urine Neg (Neg); MDMA (Ecstacy), Urine Neg (Neg); Methadone, Urine Neg (Neg); Opiate, Urine Pos (Neg); Phencyclidine, Urine Neg (Neg)
--- NOTE | 2018-07-17 17:34 | History & Physical Report ---
Date of Service July 17, 2018 Assessment & Plan (1) Altered mental status: may be secondary to use of narcotics -also may be secondary to acute renal failure acute renal failure -admission creatinine is 4 -last known outpatient creatinine was 0.84 in 08/31/16 -unclear whether changes in renal function is acute on chronic but the assumption on this admission is that this elevation in creatinine is unusual and should be treated in the acute hospital setting -will hold HCTZ or other diuretics at this time -check urinalysis, send renal ultrasound -monitor input and output with bartlett -obtain nephrology consult Hypertension -Patient follows with [facility]; have called their phone number to try to verify home medications on 07/17/18 but pharmacy is closed -review of [facility] records that patient was prescribed HCTZ 12.5 mg daily -will hold HCTZ Hyponatremia -admission serum sodium is 126 -send urine sodium and urine sodium and osmolality studies -on IV fluids with normal saline -trend levels Hypomagnesemia -admission serum sodium is 1.3, ED physician ordered IV magnesium x 2 grams, serial monitoring or magnesium levels and replete -check serum phosphorus level -hold diuretics Hypokalemia -serum potassium is 3.2 -ED physician ordered IV potassium x 2 bags -will need to correct serum magnesium levels -hold diuretics Chronic Pain syndrome -outpatient pain management on 06/30/18 that patient was referred by primary care doctor with longstanding use of opioids for non-specific pain of the rib/back area. -will hold off narcotics for now Full Code Primary Care Doctor: Raul Vincent History of Present Illness Patient as per emergency room provider with collaboration of history by patient that she was driving from [place] today and then went to a cemetery along the way back. there were concerns that patient was found in the car - patient reports she was sleeping - but as per emergency room provider there was concern that bystanders were concerned she had altered mental status. Patient on keri luation by emergency room provider with some concern for dysmetria of upper extremity. On exam by hospitalist dysmetria of upper extremity was not very apparent. Patient did present with evidence of confusion but her thoughts became more clearer as the conversations with patient continued and her story of her day prior to the emergency room arrival became more coherent. Patient does not know exactly who brought her to the hospital. Patient could not get the year right. she stated it was 2015 when it is 2019. she was able to say the correct month. Patient was able to give other information such as where her pharmacy is and who her sister is. She had capacity to make decision and we confirmed Full Code Status. She denies any history of kidney problems but her creatinine is 4 today. she denies problems with urination. no fever. no pain anywhere of the body currently. she denies taking excessive narcotic medication today. she reports that she takes her home medications as usual and they include a medication for blood pressure. she denies alcohol use. she denies headache. patient breathing on room air. no shortness of breath. no chest pain. she was able to follow physician commands to move the extremities. strength appears intact bilaterally. patient reports she does not have problems with ambulation at home Primary Care Provider: Raul Vincent, DO Allergies Allergy/AdvReac Type Severity Reaction Status Date / Time acetaminophen AdvReac Mild NAUSEA AND Verified 07/17/18 15:16 ITCHING codeine AdvReac Mild N/V Verified 07/17/18 15:16 hydrocodone AdvReac Mild NAUSEA AND Verified 07/17/18 15:16 ITCHING tetracycline AdvReac Mild N/V Verified 07/17/18 15:16 Cholesterol Allergy Unknown CHOLESTEROL Uncoded 07/17/18 15:16 MEDS Home Medications Home Medications Medication Instructions Recorded Confirmed Type aspirin [Aspirin Low Dose] 81 mg PO DAILY 07/17/18 07/17/18 History [id number] 1 tab PO DAILY 07/17/18 07/17/18 History [Caltrate 600-D Plus Minerals] cholecalciferol (vitamin D3) 1,000 unit PO DAILY 07/17/18 07/17/18 History gabapentin 600 mg PO BID 07/17/18 07/17/18 History meloxicam 7.5 mg PO DAILY 07/17/18 07/17/18 History mirtazapine 22.5 mg PO DAILY 07/17/18 07/17/18 History oxycodone [OxyContin] 20 mg PO TID PRN 07/17/18 07/17/18 History oxycodone-acetaminophen 1 tab PO QID 07/17/18 07/17/18 History Past Med/Surg History Medical History Back pain (Chronic) HTN (hypertension) (Chronic) Social History Current Living Situation: Family Feels Safe at Home: Yes Smoking Status: Current every day smoker Review of Systems Review of Systems: All systems reviewed & are unremarkable except as noted in HPI & below Physical Exam Constitutional: comfortable Eyes: PERRL, conjunctivae normal, anicteric sclerae EOM intact bilaterally ENMT: external ear and nose normal, oropharynx normal Neck: trachea midline, no thyromegaly normal visual inspection Respiratory: normal respiratory effort, lungs clear to auscultation Cardiovascular: RRR, no murmur, no edema Gastrointestinal (Abdomen): normal bowel sounds, soft, nontender, no hepatosplenomegaly Musculoskeletal: no cyanosis or clubbing, extremities motor strength 5/5 Head/Neck/Chest: normocephalic and head atraumatic Neurologic: PERRL, EOMI, accommodation nl, no face palsy, no dysarthria CN's II-XI intact bilaterally Results & Data Vital Signs (Past 12 Hours) Vital Signs Temp Pulse Resp BP Pulse Ox 07/17/18 16:31 80 17 126/87 92 07/17/18 16:30 79 20 07/17/18 16:10 96 07/17/18 15:51 23 99 07/17/18 15:50 24 170/113 H 98 07/17/18 15:30 83 23 86 L 07/17/18 15:19 87 20 95 07/17/18 15:17 86 28 H 142/96 H 96 07/17/18 14:49 36.7 C 89 18 134/104 H 88 L 07/17/18 14:41 92 H 19 135/104 H 93
[2018-07-17] MEDS: POTASSIUM CHLORIDE / WTR 10 MEQ/100 ML PLCT IV SCH ×2 (18:01→22:51)
[2018-07-17 19:07] LABS: Albumin Globulin Ratio 1.3 (0.9-2); Albumin Level 3.9 gm/dl (3.4-5.0); BUN Creatinine Ratio 14.5 (10-20); Bilirubin,Total 0.3 mg/dl (0.2-1); C Reactive Protein 1.04 mg/dl (0-0.29); Calcium 7.8 mg/dl (8.5-10.1); Creatinine Clr Calc Pharmacy 14.4 ml/min; Est GFR (African American) 14.7; Est GFR (Non-African American) 12.7; Globulin 2.9 gm/dl (2.5-4.0); Magnesium 1.6 mg/dl (1.8-2.4); Phosphorus 4.4 mg/dl (2.5-4.9); Potassium 2.9 mmol/L (3.5-5.1); Total Protein 6.8 gm/dl (6.4-8.2); Uric Acid 8.6 mg/dl (2.6-7.2)
[2018-07-17] MEDS: SODIUM CHLORIDE 0.9% 500 ML IV SCH (20:19)
[2018-07-17] MEDS ORDERED: POTASSIUM CHLORIDE / WTR 10 MEQ/100 ML PLCT IV STA (21:21)
[2018-07-17] MEDS ORDERED: MAGNESIUM SULFATE / D5W 1 GM/100 ML BAG IV STA (21:21)
[2018-07-17 22:19] LABS: BUN Creatinine Ratio 16.8 (10-20); Calcium 7.7 mg/dl (8.5-10.1); Creatinine Clr Calc Pharmacy 16.7 ml/min; Est GFR (African American) 17.7; Est GFR (Non-African American) 15.3; Potassium 2.7 mmol/L (3.5-5.1)
--- NOTE | 2018-07-17 22:48 | Ultrasound Report ---
ULTRASOUND KIDNEYS AND BLADDER CLINICAL HISTORY: Change in mental status. Elevated serum creatinine. COMPARISON STUDY: Abdominal CT dated 09/17/2011. TECHNIQUE: Real-time, grayscale, and color flow sonography of the kidneys and bladder is performed. I mages are reviewed in the transverse and longitudinal planes. The examination is suboptimal due to la ck of patient cooperation. FINDINGS: Kidneys: The kidneys demonstrate mild cortical atrophy. The right kidney measures 9.1 cm in length an d the left kidney measures 9.5 cm in length. There is no hydronephrosis. There is fullness of the re nal collecting system bilaterally. No shadowing renal calculi are identified. There is no sonographic evidence of contour deforming renal mass lesion. No perinephric fluid is identified. Bladder: The bladder was distended. The bladder wall appears mildly thickened and trabeculated. Urete ral jets were not seen. There is significant post void residual. IMPRESSION: 1. There is fullness of the renal collecting system bilaterally, likely related to bladder distention . No hydronephrosis is seen. 2. The bladder is distended in the wall appears mildly thickened and trabeculated. 3. There is significant post void bladder residual. Electronically signed by: Mateus Munoz M.D. 07/17/2018 10:46 PM
[2018-07-18] MEDS: SODIUM CHLORIDE 0.9% 500 ML IV SCH ×4 (00:04→15:11)
[2018-07-18] MEDS ORDERED: POTASSIUM CHLORIDE 10 MEQ TABCR PO STA (02:05)
[2018-07-18] MEDS: POTASSIUM CHLORIDE / WTR 10 MEQ/100 ML PLCT IV SCH ×2 (02:10→03:23)
[2018-07-18 06:07] LABS: Basophils # (auto) 0.01 K/uL (0-0.2); Basophils % (auto) 0.1 %; Eosinophils # (auto) 0.11 K/uL (0-0.5); Eosinophils % (auto) 1.6 %; Hematocrit (blood only) 34.4 % (37-47); Hemoglobin 12.1 g/dL (12.0-16.0); Immature Granulocytes # (auto) 0.02 K/uL (0.00-0.02); Immature Granulocytes % (auto) 0.3 %; Lymphocytes # (auto) 0.68 K/uL (1.2-3.4); Mean Corpuscular Hgb Conc 35.2 g/dL (32-36); Mean Corpuscular Volume 89.1 fL (80-100); Monocytes # (auto) 0.49 K/uL (0.11-0.59); Monocytes % (auto) 7.2 %; Neutrophils # (auto) 5.46 K/uL (1.4-6.5); Neutrophils % (auto) 80.8 %; Platelet Count 192 K/uL (130-400); RDW Coefficient of Variation 13.6 % (11.5-14.5); RDW Standard Deviation 44.5 fL (36.4-46.3); Red Blood Count 3.86 M/uL (4.2-5.4); White Blood Count 6.77 K/uL (4.8-10.8)
[2018-07-18 06:47] LABS: Albumin Level 3.4 gm/dl (3.4-5.0); BUN Creatinine Ratio 20.3 (10-20); Calcium 7.7 mg/dl (8.5-10.1); Creatinine Clr Calc Pharmacy 22.5 ml/min; Est GFR (African American) 25.3; Est GFR (Non-African American) 21.8; Magnesium 2.1 mg/dl (1.8-2.4); Potassium 3.2 mmol/L (3.5-5.1)
[2018-07-18 06:56] LABS: Albumin Globulin Ratio 1.1 (0.9-2); Bilirubin,Total 0.5 mg/dl (0.2-1); Total Protein 6.4 gm/dl (6.4-8.2)
[2018-07-18] MEDS ORDERED: POTASSIUM CHLORIDE 20 MEQ TABCR PO STA (07:40)
--- NOTE | 2018-07-18 10:07 | Nephrology Consultation ---
Date of Consultation July 18, 2018 Assessment & Plan (1) Acute renal failure (ARF): Patient with acute kidney injury likely due to multifactorial etiology including chronic NSAID use and prerenal azotemia. Urinalysis showing numerous hyaline casts which would support prerenal state. Renal ultrasound did not show hydronephrosis. Creatinine is downtrending with IV fluids. Continue with Ringer's lactate at 100 mL/h. Monitor renal function with daily BMP. I have asked the patient to completely avoid NSAIDs. (2) Hyponatremia: Likely hypovolemic hyponatremia. Sodium improving with IV hydration. Continue current rate of IV fluids. Patient can be allowed to salt her food. (3) Hypokalemia: Unclear etiology. Suspect reduced p.o. intake. Recommend 40 mEq of potassium p.o. today. History of Present Illness Reason for Consultation: Acute kidney injury Requesting Physician: Eris Ruff MD Attending Physician: Eris Ruff MD History of Present Illness This is a 67-year-old female with history of hypertension and chronic back pain on chronic pain medications including opioids, meloxicam and [id number] Advil, Aleve and Tylenol who was admitted on 07/17/2018 with altered mental status and acute kidney injury with creatinine of 4. She had a normal creatinine of 0.8, 2 years ago. Patient reports taking Advil almost on a daily basis for chronic back pain. She reports drinking lots of water. She denied any dysuria, hematuria or frequency. In the emergency room she was started on IV normal saline with potassium chloride supplements. Urinalysis showed hyaline casts, 10-5 RBCs per high-power field on 1030 WBCs per high-power field. Renal ultrasound showed no hydronephrosis or kidney stones. This morning she feels better denying any dizziness or confusion. She denies any shortness of breath. No lower extremity swelling. Her creatinine is downtrending to 2.2 today Allergies Allergy/AdvReac Type Severity Reaction Status Date / Time acetaminophen AdvReac Mild NAUSEA AND Verified 07/17/18 15:16 ITCHING codeine AdvReac Mild N/V Verified 07/17/18 15:16 hydrocodone AdvReac Mild NAUSEA AND Verified 07/17/18 15:16 ITCHING tetracycline AdvReac Mild N/V Verified 07/17/18 15:16 Cholesterol Allergy Unknown CHOLESTEROL Uncoded 07/17/18 15:16 MEDS Home Medications Home Medications Medication Instructions Recorded Confirmed Type aspirin [Aspirin Low Dose] 81 mg PO DAILY 07/17/18 07/17/18 History [id number] 1 tab PO DAILY 07/17/18 07/17/18 History [Caltrate 600-D Plus Minerals] cholecalciferol (vitamin D3) 1,000 unit PO DAILY 07/17/18 07/17/18 History gabapentin 600 mg PO BID 07/17/18 07/17/18 History meloxicam 7.5 mg PO DAILY 07/17/18 07/17/18 History mirtazapine 22.5 mg PO DAILY 07/17/18 07/17/18 History oxycodone [OxyContin] 20 mg PO TID PRN 07/17/18 07/17/18 History oxycodone-acetaminophen 1 tab PO QID 07/17/18 07/17/18 History Patient History Medical History Back pain (Chronic) HTN (hypertension) (Chronic) Social History Preferred Language: Andorran Communication Ability: Effective Beliefs That Will Affect Care: None Current Living Situation: Family Feels Safe at Home: Yes Smoking Status: Current every day smoker Review of Systems Review of Systems: All systems reviewed & are unremarkable except as noted in HPI & below Physical Exam Physical Exam: General exam: Appears comfortable, no acute distress HEENT: Pupils are equal and reactive to light Neck: No JVD, neck is supple trachea is midline Respiratory system: Clear breath sounds bilaterally. Gastrointestinal: Abdomen is soft, non distended, non tender, bowel sounds are present CVS: Regular rate and rhythm. No murmurs, rubs or gallops Musculoskeletal: No joint or muscle tenderness Extremities: Non tender, no edema, peripheral pulses are present Neuro: Oriented, no tremors, no focal neurological deficits Skin: No rashes Results & Data Vital Signs (Past 12 Hours) Vital Signs Temp Pulse Pulse Resp BP Pulse Ox 07/18/18 07:32 37.6 C H 69 20 102/69 94 07/18/18 04:00 36.5 C 67 16 145/84 H 93 07/18/18 00:00 36.9 C 84 16 128/87 94 07/17/18 22:10 73 Laboratory Results Laboratory Results - last 24 hr 07/17/18 07/17/18 07/17/18 15:20 15:20 15:20 WBC 10.35 RBC 3.89 L Hgb 11.9 L Hct 34.1 L MCV 87.7 MCH 30.6 MCHC 34.9 RDW Std Deviation 43.4 RDW Coeff of [place] 13.6 Plt Count 212 MPV 9.8 Immature Gran % (Auto) 0.2 Neut % (Auto) 73.3 Lymph % (Auto) 18.6 [place] % (Auto) 6.9 Eos % (Auto) 0.7 Baso % (Auto) 0.3 Immature Gran # (Auto) 0.02 Neut # (Auto) 7.60 H Lymph # (Auto) 1.92 [place] # (Auto) 0.71 H Eos # (Auto) 0.07 Baso # (Auto) 0.03 ESR Sodium 126 L Potassium 3.2 L Chloride 89 L Carbon Dioxide 23 Anion Gap 13.0 H BUN 53 H Creatinine 4.08 H Est Cr Clr Drug Dosing 12.4 Est GFR ( Amer) 12.2 Est GFR (Non-Af Amer) 10.6 BUN/Creatinine Ratio 12.9 Glucose 101 H Osmolality Uric Acid Calcium 8.8 Phosphorus Magnesium Cancelled 1.3 L Total Bilirubin 0.4 AST 150 H ALT 39 Alkaline Phosphatase 83 C-Reactive Protein Total Protein 7.8 Albumin 4.3 Globulin 3.5 Albumin/Globulin Ratio 1.2 Procalcitonin TSH 0.770 Urine Color Urine Appearance Urine pH Ur Specific [place] Urine Protein Urine Glucose (UA) Urine Ketones Urine Blood Urine Nitrite Urine Bilirubin Urine Urobilinogen Ur Leukocyte Esterase Urine WBC (Auto) Urine RBC (Auto) U Hyaline Cast (Auto) U Epithel Cells (Auto) Urine Bacteria (Auto) Ur Renal Epithelial Cell Urine Osmolality Ur Random Sodium Salicylates Urine Opiates Screen U Codeine Confrm GC/MS Ur Morphine (GC/MS) Ur Hydrocodone (GC/MS) Ur Norhydrocodone Ur Noroxycodone Urine Oxycodone (GC/MS) U Oxymorphone GC/MS Ur Methadone, Qual Ur Hydromorphone (GC/MS) Urine Barbiturates Ur Phencyclidine (PCP) U Amphetamin/Meth Scrn MDMA (Ecstasy) Screen U Benzodiazepines Scrn Ur Cocaine Metabolite U Marijuana (THC) Screen Ethyl Alcohol mg/dL 07/17/18 07/17/18 07/17/18 15:20 15:20 18:30 WBC RBC Hgb Hct MCV MCH MCHC RDW Std Deviation RDW Coeff of [place] Plt Count MPV Immature Gran % (Auto) Neut % (Auto) Lymph % (Auto) [place] % (Auto) Eos % (Auto) Baso % (Auto) Immature Gran # (Auto) Neut # (Auto) Lymph # (Auto) [place] # (Auto) Eos # (Auto) Baso # (Auto) ESR 13 Sodium 127 L Potassium 2.9 L Chloride 94 L Carbon Dioxide 22 Anion Gap 11.0 BUN 51 H Creatinine 3.50 H D Est Cr Clr Drug Dosing 14.4 Est GFR ( Amer) 14.7 Est GFR (Non-Af Amer) 12.7 BUN/Creatinine Ratio 14.5 Glucose 106 H Osmolality Uric Acid 8.6 H Calcium 7.8 L Phosphorus 4.4 Magnesium 1.6 L Total Bilirubin 0.3 AST 174 H ALT 40 Alkaline Phosphatase 79 C-Reactive Protein 1.04 H Total Protein 6.8 Albumin 3.9 Globulin 2.9 Albumin/Globulin Ratio 1.3 Procalcitonin TSH Urine Color Urine Appearance Urine pH Ur Specific [place] Urine Protein Urine Glucose (UA) Urine Ketones Urine Blood Urine Nitrite Urine Bilirubin Urine Urobilinogen Ur Leukocyte Esterase Urine WBC (Auto) Urine RBC (Auto) U Hyaline Cast (Auto) U Epithel Cells (Auto) Urine Bacteria (Auto) Ur Renal Epithelial Cell Urine Osmolality Ur Random Sodium Salicylates Urine Opiates Screen U Codeine Confrm GC/MS Ur Morphine (GC/MS) Ur Hydrocodone (GC/MS) Ur Norhydrocodone Ur Noroxycodone Urine Oxycodone (GC/MS) U Oxymorphone GC/MS Ur Methadone, Qual Ur Hydromorphone (GC/MS) Urine Barbiturates Ur Phencyclidine (PCP) U Amphetamin/Meth Scrn MDMA (Ecstasy) Screen U Benzodiazepines Scrn Ur Cocaine Metabolite U Marijuana (THC) Screen Ethyl Alcohol mg/dL < 3.0 07/17/18 07/17/18 07/17/18 18:30 18:30 18:30 WBC RBC Hgb Hct MCV MCH MCHC RDW Std Deviation RDW Coeff of [place] Plt Count MPV Immature Gran % (Auto) Neut % (Auto) Lymph % (Auto) [place] % (Auto) Eos % (Auto) Baso % (Auto) Immature Gran # (Auto) Neut # (Auto) Lymph # (Auto) [place] # (Auto) Eos # (Auto) Baso # (Auto) ESR Sodium Potassium Chloride Carbon Dioxide Anion Gap BUN Creatinine Est Cr Clr Drug Dosing Est GFR ( Amer) Est GFR (Non-Af Amer) BUN/Creatinine Ratio Glucose Osmolality 274 L Uric Acid Calcium Phosphorus Magnesium Total Bilirubin AST ALT Alkaline Phosphatase C-Reactive Protein Total Protein Albumin Globulin Albumin/Globulin Ratio Procalcitonin 0.15 TSH Urine Color Urine Appearance Urine pH Ur Specific [place] Urine Protein Urine Glucose (UA) Urine Ketones Urine Blood Urine Nitrite Urine Bilirubin Urine Urobilinogen Ur Leukocyte Esterase Urine WBC (Auto) Urine RBC (Auto) U Hyaline Cast (Auto) U Epithel Cells (Auto) Urine Bacteria (Auto) Ur Renal Epithelial Cell Urine Osmolality Ur Random Sodium Salicylates 5.8 Urine Opiates Screen U Codeine Confrm GC/MS Ur Morphine (GC/MS) Ur Hydrocodone (GC/MS) Ur Norhydrocodone Ur Noroxycodone Urine Oxycodone (GC/MS) U Oxymorphone GC/MS Ur Methadone, Qual Ur Hydromorphone (GC/MS) Urine Barbiturates Ur Phencyclidine (PCP) U Amphetamin/Meth Scrn MDMA (Ecstasy) Screen U Benzodiazepines Scrn Ur Cocaine Metabolite U Marijuana (THC) Screen Ethyl Alcohol mg/dL 07/17/18 07/17/18 07/17/18 21:47 Unknown Unknown WBC RBC Hgb Hct MCV MCH MCHC RDW Std Deviation RDW Coeff of [place] Plt Count MPV Immature Gran % (Auto) Neut % (Auto) Lymph % (Auto) [place] % (Auto) Eos % (Auto) Baso % (Auto) Immature Gran # (Auto) Neut # (Auto) Lymph # (Auto) [place] # (Auto) Eos # (Auto) Baso # (Auto) ESR Sodium 131 L Potassium 2.7 L Chloride 98 Carbon Dioxide 21 Anion Gap 12.0 H BUN 51 H Creatinine 3.01 H D Est Cr Clr Drug Dosing 16.7 Est GFR ( Amer) 17.7 Est GFR (Non-Af Amer) 15.3 BUN/Creatinine Ratio 16.8 Glucose 100 H Osmolality Uric Acid Calcium 7.7 L Phosphorus Magnesium Total Bilirubin AST ALT Alkaline Phosphatase C-Reactive Protein Total Protein Albumin Globulin Albumin/Globulin Ratio Procalcitonin TSH Urine Color Dark Yellow Urine Appearance Clear Urine pH 6.0 Ur Specific [place] 1.015 Urine Protein 1+ H Urine Glucose (UA) Negative Urine Ketones Trace H Urine Blood 3+ H Urine Nitrite Negative Urine Bilirubin Negative Urine Urobilinogen Negative Ur Leukocyte Esterase 2+ H Urine WBC (Auto) 10-30 H Urine RBC (Auto) 10-30 H U Hyaline Cast (Auto) 10-30 H U Epithel Cells (Auto) >30 H Urine Bacteria (Auto) Negative Ur Renal Epithelial Cell 0-5 Urine Osmolality Ur Random Sodium Salicylates Urine Opiates Screen Pos H U Codeine Confrm GC/MS Ur Morphine (GC/MS) Ur Hydrocodone (GC/MS) Ur Norhydrocodone Ur Noroxycodone Urine Oxycodone (GC/MS) U Oxymorphone GC/MS Ur Methadone, Qual Neg Ur Hydromorphone (GC/MS) Urine Barbiturates Neg Ur Phencyclidine (PCP) Neg U Amphetamin/Meth Scrn Neg MDMA (Ecstasy) Screen Neg U Benzodiazepines Scrn Neg Ur Cocaine Metabolite Neg U Marijuana (THC) Screen Neg Ethyl Alcohol mg/dL 07/17/18 07/17/18 07/17/18 Unknown Unknown Unknown WBC RBC Hgb Hct MCV MCH MCHC RDW Std Deviation RDW Coeff of [place] Plt Count MPV Immature Gran % (Auto) Neut % (Auto) Lymph % (Auto) [place] % (Auto) Eos % (Auto) Baso % (Auto) Immature Gran # (Auto) Neut # (Auto) Lymph # (Auto) [place] # (Auto) Eos # (Auto) Baso # (Auto) ESR Sodium Potassium Chloride Carbon Dioxide Anion Gap BUN Creatinine Est Cr Clr Drug Dosing Est GFR ( Amer) Est GFR (Non-Af Amer) BUN/Creatinine Ratio Glucose Osmolality Uric Acid Calcium Phosphorus Magnesium Total Bilirubin AST ALT Alkaline Phosphatase C-Reactive Protein Total Protein Albumin Globulin Albumin/Globulin Ratio Procalcitonin TSH Urine Color Urine Appearance Urine pH Ur Specific [place] Urine Protein Urine Glucose (UA) Urine Ketones Urine Blood Urine Nitrite Urine Bilirubin Urine Urobilinogen Ur Leukocyte Esterase Urine WBC (Auto) Urine RBC (Auto) U Hyaline Cast (Auto) U Epithel Cells (Auto) Urine Bacteria (Auto) Ur Renal Epithelial Cell Urine Osmolality 298 L Ur Random Sodium < 5 Salicylates Urine Opiates Screen U Codeine Confrm GC/MS Pending Ur Morphine (GC/MS) Pending Ur Hydrocodone (GC/MS) Pending Ur Norhydrocodone Pending Ur Noroxycodone Pending Urine Oxycodone (GC/MS) Pending U Oxymorphone GC/MS Pending Ur Methadone, Qual Ur Hydromorphone (GC/MS) Pending Urine Barbiturates Ur Phencyclidine (PCP) U Amphetamin/Meth Scrn MDMA (Ecstasy) Screen U Benzodiazepines Scrn Ur Cocaine Metabolite U Marijuana (THC) Screen Ethyl Alcohol mg/dL 07/18/18 07/18/18 05:53 05:53 WBC 6.77 RBC 3.86 L Hgb 12.1 Hct 34.4 L MCV 89.1 MCH 31.3 MCHC 35.2 RDW Std Deviation 44.5 RDW Coeff of [place] 13.6 Plt Count 192 MPV 10.0 Immature Gran % (Auto) 0.3 Neut % (Auto) 80.8 Lymph % (Auto) 10.0 [place] % (Auto) 7.2 Eos % (Auto) 1.6 Baso % (Auto) 0.1 Immature Gran # (Auto) 0.02 Neut # (Auto) 5.46 Lymph # (Auto) 0.68 L [place] # (Auto) 0.49 Eos # (Auto) 0.11 Baso # (Auto) 0.01 ESR Sodium 131 L Potassium 3.2 L D Chloride 100 Carbon Dioxide 21 Anion Gap 10.0 BUN 45 H Creatinine 2.24 H D Est Cr Clr Drug Dosing 22.5 Est GFR ( Amer) 25.3 Est GFR (Non-Af Amer) 21.8 BUN/Creatinine Ratio 20.3 H Glucose 82 Osmolality Uric Acid Calcium 7.7 L Phosphorus Magnesium 2.1 Total Bilirubin 0.5 AST 211 H ALT 48 Alkaline Phosphatase 71 C-Reactive Protein Total Protein 6.4 Albumin 3.4 Globulin 3.0 Albumin/Globulin Ratio 1.1 Procalcitonin TSH Urine Color Urine Appearance Urine pH Ur Specific [place] Urine Protein Urine Glucose (UA) Urine Ketones Urine Blood Urine Nitrite Urine Bilirubin Urine Urobilinogen Ur Leukocyte Esterase Urine WBC (Auto) Urine RBC (Auto) U Hyaline Cast (Auto) U Epithel Cells (Auto) Urine Bacteria (Auto) Ur Renal Epithelial Cell Urine Osmolality Ur Random Sodium Salicylates Urine Opiates Screen U Codeine Confrm GC/MS Ur Morphine (GC/MS) Ur Hydrocodone (GC/MS) Ur Norhydrocodone Ur Noroxycodone Urine Oxycodone (GC/MS) U Oxymorphone GC/MS Ur Methadone, Qual Ur Hydromorphone (GC/MS) Urine Barbiturates Ur Phencyclidine (PCP) U Amphetamin/Meth Scrn MDMA (Ecstasy) Screen U Benzodiazepines Scrn Ur Cocaine Metabolite U Marijuana (THC) Screen Ethyl Alcohol mg/dL (1) Acute renal failure (ARF) Acute renal failure type: unspecified Qualified Code(s): N17.9 - Acute kidney failure, unspecified
[2018-07-18 14:51] LABS: BUN Creatinine Ratio 23.1 (10-20); Creatinine Clr Calc Pharmacy 28.3 ml/min; Est GFR (African American) 33.4; Est GFR (Non-African American) 28.8; Magnesium 1.9 mg/dl (1.8-2.4); Potassium 3.9 mmol/L (3.5-5.1)
[2018-07-18] MEDS: SODIUM CHLORIDE 0.9% 1000ML 1,000 ML IV SCH (16:26)
--- NOTE | 2018-07-18 17:09 | Hospitalist Progress Note ---
Date of Service July 18, 2018 Assessment & Plan (1) Altered mental status: Metabolic encephalopathy secondary to use of narcotics and/or acute renal failure -mental status has returned to baseline acute renal failure -admission creatinine is 4 on 07/19/18 -last known outpatient creatinine was 0.84 in 08/31/16 -renal ultrasound 07/17/18: The kidneys demonstrate mild cortical atrophy. The right kidney measures 9.1 cm in length and the left kidney measures 9.5 cm in length. There is no hydronephrosis. There is fullness of the renal collecting system bilaterally. No shadowing renal calculi are identified. There is no sonographic evidence of contour deforming renal mass lesion. No perinephric fluid is identified. -no urinary tract infection -while on IV fluids, serial renal function labs shown downtrending creatinine and last check creatine on 07/18/18 is 1.78 -rate of IV fluids have been slowed down, continue to hold HCTZ Hypertension -Patient follows with [facility] -review of [facility] records that patient was prescribed HCTZ 12.5 mg daily at home -will hold HCTZ -blood pressure controlled Hyponatremia -admission serum sodium is 126 -serum sodium has improved with IV fluids and last check serum sodium is 133 Hypomagnesemia -admission serum sodium is 1.3, serum sodium is corrected to 1.9 with magnesium supplementation, continue to monitor -normal serum phosphorus level -hold diuretics Hypokalemia -admission serum potassium is 3.2 -with repletion serum potassium is now 3.9 -hold diuretics Chronic Pain syndrome -outpatient pain management on 06/30/18 that patient was referred by primary care doctor with longstanding use of opioids for non-specific pain of the rib/back area. -hold off narcotics Full Code Primary Care Doctor: Raul Vincent Subjective Patient awake and alert. On IV fluids her renal function is improving. she has been getting IV electrolyte supplements. Patient appears to be at mental baseline. denies acute pain. no headache. no dizziness. no shortness of breath. no vomiting. she reports she is urinating. Physical Exam Constitutional: comfortable Eyes: PERRL, conjunctivae normal, anicteric sclerae EOM intact bilaterally ENMT: external ear and nose normal, oropharynx normal Neck: trachea midline, no thyromegaly normal visual inspection Respiratory: normal respiratory effort, lungs clear to auscultation Cardiovascular: RRR, no murmur, no edema Gastrointestinal (Abdomen): normal bowel sounds, soft, nontender, no hepatosplenomegaly Musculoskeletal: no cyanosis or clubbing, extremities motor strength 5/5 Head/Neck/Chest: normocephalic and head atraumatic Neurologic: PERRL, EOMI, accommodation nl, no face palsy, no dysarthria CN's II-XI intact bilaterally Results & Data Vital Signs (Past 12 Hours) Vital Signs Temp Pulse Pulse Resp BP Pulse Ox 07/18/18 15:30 72 07/18/18 14:50 37.3 C 70 20 94/70 L 94 07/18/18 11:24 36.6 C 70 20 125/85 93 07/18/18 08:00 77 07/18/18 07:32 37.6 C H 69 20 102/69 94
[2018-07-19] MEDS: SODIUM CHLORIDE 0.9% 1000ML 1,000 ML IV SCH (05:33)
[2018-07-19 08:11] LABS: Albumin Level 2.7 gm/dl (3.4-5.0); BUN Creatinine Ratio 29.7 (10-20); Bilirubin,Total 0.3 mg/dl (0.2-1); Calcium 6.9 mg/dl (8.5-10.1); Est GFR (African American) 63.2; Est GFR (Non-African American) 54.5; Globulin 2.7 gm/dl (2.5-4.0); Magnesium 1.5 mg/dl (1.8-2.4); Potassium 3.1 mmol/L (3.5-5.1); Total Protein 5.4 gm/dl (6.4-8.2)
[2018-07-19 08:18] LABS: Basophils # (auto) 0.02 K/uL (0-0.2); Basophils % (auto) 0.3 %; Eosinophils # (auto) 0.24 K/uL (0-0.5); Eosinophils % (auto) 4.1 %; Hematocrit (blood only) 26.8 % (37-47); Hemoglobin 9.2 g/dL (12.0-16.0); Lymphocytes # (auto) 1.07 K/uL (1.2-3.4); Lymphocytes % (auto) 18.1 %; Mean Corpuscular Hgb Conc 34.3 g/dL (32-36); Mean Corpuscular Volume 89.3 fL (80-100); Mean Platelet Volume 9.8 fL (7.4-10.4); Monocytes # (auto) 0.76 K/uL (0.11-0.59); Monocytes % (auto) 12.8 %; Neutrophils # (auto) 3.83 K/uL (1.4-6.5); Neutrophils % (auto) 64.7 %; Platelet Count 159 K/uL (130-400); RDW Coefficient of Variation 13.7 % (11.5-14.5); RDW Standard Deviation 45.3 fL (36.4-46.3); White Blood Count 5.92 K/uL (4.8-10.8)
[2018-07-19] MEDS ORDERED: POTASSIUM CHLORIDE 20 MEQ TABCR PO STA (09:50)
[2018-07-19] MEDS ORDERED: MAGNESIUM OXIDE 400 MG TAB PO SCH (10:00)
[2018-07-19] MEDS: MAGNESIUM SULFATE / D5W 1 GM/100 ML BAG IV SCH ×2 (10:39→11:41)
[2018-07-19] MEDS: POTASSIUM ACETATE 10 MEQ in 0.9 % SODIUM CHLORIDE 100 ML IV SCH ×2 (10:52→11:52)
[2018-07-19 14:36] LABS: BUN Creatinine Ratio 26.2 (10-20); Calcium 7.5 mg/dl (8.5-10.1); Creatinine Clr Calc Pharmacy 48.9 ml/min; Est GFR (African American) 64.7; Est GFR (Non-African American) 55.8; Magnesium 2.2 mg/dl (1.8-2.4); Potassium 3.7 mmol/L (3.5-5.1)
--- NOTE | 2018-07-19 15:31 | Hospitalist Progress Note ---
Date of Service July 19, 2018 Assessment & Plan (1) Altered mental status: Metabolic encephalopathy secondary to use of narcotics and/or acute renal failure -mental status has returned to baseline acute renal failure -admission creatinine is 4 on 07/19/18 -last known outpatient creatinine was 0.84 in 08/31/16 -renal ultrasound 07/17/18: The kidneys demonstrate mild cortical atrophy. The right kidney measures 9.1 cm in length and the left kidney measures 9.5 cm in length. There is no hydronephrosis. There is fullness of the renal collecting system bilaterally. No shadowing renal calculi are identified. There is no sonographic evidence of contour deforming renal mass lesion. No perinephric fluid is identified. -no urinary tract infection -while on IV fluids, serial renal function labs shown downtrending creatinine and last check creatine on 07/18/18 is 1.78 -rate of IV fluids have been slowed down -creatinine 1.03 by 07/19/18 -continue to hold HCTZ -Patient should follow up with primary care doctor 07/25/2018 11:10 AM Provider Raul Vincent, DO Department Family [facility] Patient should have comprehensive metabolic panel checked by primary care doctor Patient should hold off blood pressure medication of HCTZ until follow up with primary care doctor Patient should avoid NSAID medications such as meloxicam Patent should avoid excessive narcotic medications Hypertension -Patient follows with [facility] at [facility] -review of [facility] records that patient was prescribed HCTZ 12.5 mg daily at home -hold HCTZ -blood pressure controlled Hyponatremia -admission serum sodium is 126 -serum sodium has improved with IV fluids and last check serum sodium is 131 Hypomagnesemia -admission serum sodium is 1.3, serum sodium is corrected to 2.2 with magnesium supplementation, continue to monitor -normal serum phosphorus level -hold diuretics -daily magnesium oral on discharge Hypokalemia -admission serum potassium is 3.2 -with repletion serum potassium is now 3.7 -hold diuretics Chronic Pain syndrome -outpatient pain management on 06/30/18 that patient was referred by primary care doctor with longstanding use of opioids for non-specific pain of the rib/back area. -hold off narcotics -Patient should avoid NSAID medications such as meloxicam Patent should avoid excessive narcotic medications Full Code Primary Care Doctor: Raul Vincent Discharge Diagnosis Altered mental status (Metabolic encephalopathy secondary to use of narcotics and/or acute renal failure), acute renal failure (resolved), Chronic Pain syndrome, Hypomagnesemia, Hyponatremia, Hypokalemia, Hypertension Discharge Instructions discharge to home Patient should take magnesium daily. Patient should follow up with primary care doctor 07/25/2018 11:10 AM Provider Raul Vincent DO Department Family Practice [facility] Patient should have comprehensive metabolic panel checked by primary care doctor Patient should hold off blood pressure medication of HCTZ until follow up with primary care doctor Patient should avoid NSAID medications such as meloxicam Patent should avoid excessive narcotic medications Other appointments 07/27/2018 9:00 AM Provider Bj Carrasquillo MD Department Rheumatology [facility] 08/11/2018 10:30 AM Provider [facility], [facility] Subjective Patient seen and examined at bedside. baseline mental status. denies shortness of breath. no chest pain. no abdominal pain. no lightheadedness. no vomiting. has been ambulatory on her own power. we discussed discharge plans Physical Exam Constitutional: comfortable Eyes: PERRL, conjunctivae normal, anicteric sclerae EOM intact bilaterally ENMT: external ear and nose normal, oropharynx normal Neck: trachea midline, no thyromegaly normal visual inspection Respiratory: normal respiratory effort, lungs clear to auscultation Cardiovascular: RRR, no murmur, no edema Gastrointestinal (Abdomen): normal bowel sounds, soft, nontender, no hepatosplenomegaly Musculoskeletal: no cyanosis or clubbing, extremities motor strength 5/5 Head/Neck/Chest: normocephalic and head atraumatic Neurologic: PERRL, EOMI, accommodation nl, no face palsy, no dysarthria CN's II-XI intact bilaterally Results & Data Vital Signs (Past 12 Hours) Vital Signs Temp Pulse Pulse Resp BP BP Pulse Ox 07/19/18 15:09 36.6 C 70 19 101/70 94/70 L 94 07/19/18 09:00 71 07/19/18 08:28 36.6 C 70 19 101/70 94
--- NOTE | 2018-07-19 15:35 | Nephrology Progress Note ---
Date of Service July 19, 2018 Assessment & Plan (1) Acute renal failure (ARF): Patient with acute kidney injury likely due to multifactorial etiology including chronic NSAID use and prerenal azotemia. Urinalysis showing numerous hyaline casts which would support prerenal state. Renal ultrasound did not show hydronephrosis. Creatinine is downtrending with IV fluids, at 1 today. I have asked the patient to completely avoid NSAIDs. Patient is being discharged later today. She will need a repeat BMP either on Wednesday or Wednesday. This can be reviewed by the PCP. If persistent electrolyte abnormalities the PCP can refer to outpatient nephrology. (2) Hyponatremia: Likely hypovolemic hyponatremia. Sodium at 131 today. Patient can be allowed to salt her food. Recommend 1.5L fluid restriction at home. (3) Hypokalemia: In setting of auto diuresis. Patient needs to eat high potassium diet. She will need a repeat BMP at least early next week. Subjective Patient seen in follow-up for acute kidney injury and hyponatremia. She feels better this morning denies any shortness of breath or urinary symptoms. Sodium is at 131 and creatinine close to baseline at 1. She still had multiple elect light abnormalities including hypokalemia and hypomagnesemia. She is eager to go home. Review of Systems Review of Systems: All systems reviewed & are unremarkable except as noted in HPI & below Physical Exam Physical Exam: General exam: Appears comfortable, no acute distress HEENT: Pupils are equal and reactive to light Neck: No JVD, neck is supple trachea is midline Respiratory system: Clear breath sounds bilaterally. Gastrointestinal: Abdomen is soft, non distended, non tender, bowel sounds are present CVS: Regular rate and rhythm. No murmurs, rubs or gallops Musculoskeletal: No joint or muscle tenderness Extremities: Non tender, no edema, peripheral pulses are present Neuro: Oriented, no tremors, no focal neurological deficits Skin: No rashes Results & Data Vital Signs (Past 12 Hours) Vital Signs Temp Pulse Pulse Resp BP BP Pulse Ox 07/19/18 15:09 36.6 C 70 19 101/70 94/70 L 94 07/19/18 09:00 71 07/19/18 08:28 36.6 C 70 19 101/70 94 Laboratory Results Laboratory Results - last 24 hr 06/04/19 06/04/19 06/04/19 06:50 06:50 13:56 WBC 5.92 RBC 3.00 L Hgb 9.2 L Hct 26.8 L MCV 89.3 MCH 30.7 MCHC 34.3 RDW Std Deviation 45.3 RDW Coeff of [place] 13.7 Plt Count 159 MPV 9.8 Immature Gran % (Auto) 0.0 Neut % (Auto) 64.7 Lymph % (Auto) 18.1 Nance % (Auto) 12.8 Eos % (Auto) 4.1 Baso % (Auto) 0.3 Immature Gran # (Auto) 0.00 Neut # (Auto) 3.83 Lymph # (Auto) 1.07 L Nance # (Auto) 0.76 H Eos # (Auto) 0.24 Baso # (Auto) 0.02 Sodium 134 L 131 L Potassium 3.1 L D 3.7 D Chloride 108 H 102 Carbon Dioxide 16 L 23 Anion Gap 11.0 6.0 BUN 31 H 27 H Creatinine 1.05 1.03 Est Cr Clr Drug Dosing 48.0 48.9 Est GFR ( Amer) 63.2 64.7 Est GFR (Non-Af Amer) 54.5 55.8 BUN/Creatinine Ratio 29.7 H 26.2 H Glucose 88 101 H Calcium 6.9 L 7.5 L Magnesium 1.5 L 2.2 Total Bilirubin 0.3 AST 165 H ALT 44 Alkaline Phosphatase 56 Total Protein 5.4 L Albumin 2.7 L Globulin 2.7 Albumin/Globulin Ratio 1.0 (1) Acute renal failure (ARF) Acute renal failure type: unspecified Qualified Code(s): N17.9 - Acute kidney failure, unspecified
--- NOTE | 2018-07-19 15:37 | Discharge Summary ---
Date of Service July 19, 2018 Admission HPI Per Admitting Provider Patient as per emergency room provider with collaboration of history by patient that she was driving from [place] today and then [place]. there were concerns that patient was found in the car - patient reports she was sleeping - but as per emergency room provider there was concern that bystanders were concerned she had altered mental status. Patient on evaluation by emergency room provider with some concern for dysmetria of upper extremity. On exam by hospitalist dysmetria of upper extremity was not very apparent. Patient did present with evidence of confusion but her thoughts became more clearer as the conversations with patient continued and her story of her day prior to the emergency room arrival became more coherent. Patient does not know exactly who brought her to the hospital. Patient could not get the year right. she stated it was 2015 when it is 2018. she was able to say the correct month. Patient was able to give other information such as where her pharmacy is and who her sister is. She had capacity to make decision and we confirmed Full Code Status. She denies any history of kidney problems but her creatinine is 4 today. she denies problems with urination. no fever. no pain anywhere of the body currently. she denies taking excessive narcotic medication today. she reports that she takes her home medications as usual and they include a medication for blood pressure. she denies alcohol use. she denies headache. patient breathing on room air. no shortness of breath. no chest pain. she was able to follow physician commands to move the extremities. strength appears intact bilaterally. patient reports she does not have problems with ambulation at home Admission Exam Per Admitting Provider Constitutional: comfortable Eyes: PERRL, conjunctivae normal, anicteric sclerae EOM intact bilaterally ENMT: external ear and nose normal, oropharynx normal Neck: trachea midline, no thyromegaly normal visual inspection Respiratory: normal respiratory effort, lungs clear to auscultation Cardiovascular: RRR, no murmur, no edema Gastrointestinal (Abdomen): normal bowel sounds, soft, nontender, no hepatosplenomegaly Musculoskeletal: no cyanosis or clubbing, extremities motor strength 5/5 Head/Neck/Chest: normocephalic and head atraumatic Neurologic: PERRL, EOMI, accommodation nl, no face palsy, no dysarthria CN's II-XI intact bilaterally Principal Diagnosis Altered mental status (Metabolic encephalopathy secondary to use of narcotics and/or acute renal failure), acute renal failure (resolved), Chronic Pain syndrome, Hypomagnesemia, Hyponatremia, Hypokalemia, Hypertension Discharge Exam Constitutional comfortable Eyes PERRL, conjunctivae normal, anicteric sclerae EOM intact bilaterally ENMT external ear and nose normal, oropharynx normal Neck trachea midline, no thyromegaly normal visual inspection Respiratory normal respiratory effort, lungs clear to auscultation Cardiovascular RRR, no murmur, no edema Gastrointestinal (Abdomen) normal bowel sounds, soft, nontender, no hepatosplenomegaly Musculoskeletal no cyanosis or clubbing, extremities motor strength 5/5 Head/Neck/Chest: normocephalic and head atraumatic Neurologic PERRL, EOMI, accommodation nl, no face palsy, no dysarthria CN's II-XI intact bilaterally Discharge Data Allergies Allergy/AdvReac Type Severity Reaction Status Date / Time acetaminophen AdvReac Mild NAUSEA AND Verified 07/17/18 15:16 ITCHING codeine AdvReac Mild N/V Verified 07/17/18 15:16 hydrocodone AdvReac Mild NAUSEA AND Verified 07/17/18 15:16 ITCHING tetracycline AdvReac Mild N/V Verified 07/17/18 15:16 Cholesterol Allergy Unknown CHOLESTEROL Uncoded 07/17/18 15:16 MEDS Consultations 07/17/18 16:35 ED Decision to Admit Stat 07/17/18 17:18 Consult Nephrology Routine 07/17/18 17:27 Consult Case Management - Discharge Planning Routine Ordered Studies 07/17/18 14:55 CT head/brain wo con Stat 07/17/18 17:13 US renal/blad retro comp Stat Hospital Course (1) Altered mental status: Metabolic encephalopathy secondary to use of narcotics and/or acute renal failure -mental status has returned to baseline acute renal failure -admission creatinine is 4 on 07/19/18 -last known outpatient creatinine was 0.84 in 08/31/16 -renal ultrasound 07/17/18: The kidneys demonstrate mild cortical atrophy. The right kidney measures 9.1 cm in length and the left kidney measures 9.5 cm in length. There is no hydronephrosis. There is fullness of the renal collecting system bilaterally. No shadowing renal calculi are identified. There is no sonographic evidence of contour deforming renal mass lesion. No perinephric fluid is identified. -no urinary tract infection -while on IV fluids, serial renal function labs shown downtrending creatinine and last check creatine on 07/18/18 is 1.78 -rate of IV fluids have been slowed down -creatinine 1.03 by 07/19/18 -continue to hold HCTZ -Patient should follow up with primary care doctor 07/25/2018 11:10 AM Provider Raul Vincent DO [facility] Patient should have comprehensive metabolic panel checked by primary care doctor Patient should hold off blood pressure medication of HCTZ until follow up with primary care doctor Patient should avoid NSAID medications such as meloxicam Patent should avoid excessive narcotic medications Hypertension -Patient follows with [facility] patient was prescribed HCTZ 12.5 mg daily at home -hold HCTZ -blood pressure controlled Hyponatremia -admission serum sodium is 126 -serum sodium has improved with IV fluids and last check serum sodium is 131 Hypomagnesemia -admission serum sodium is 1.3, serum sodium is corrected to 2.2 with magnesium supplementation, continue to monitor -normal serum phosphorus level -hold diuretics -daily magnesium oral on discharge Hypokalemia -admission serum potassium is 3.2 -with repletion serum potassium is now 3.7 -hold diuretics Chronic Pain syndrome -outpatient pain management on 06/30/18 that patient was referred by primary care doctor with longstanding use of opioids for non-specific pain of the rib/back area. -hold off narcotics -Patient should avoid NSAID medications such as meloxicam Patent should avoid excessive narcotic medications Full Code Primary Care Doctor: Raul Vincent Discharge Diagnosis Altered mental status (Metabolic encephalopathy secondary to use of narcotics and/or acute renal failure), acute renal failure (resolved), Chronic Pain syndrome, Hypomagnesemia, Hyponatremia, Hypokalemia, Hypertension Discharge Instructions discharge to home Patient should take magnesium daily. Patient should follow up with primary care doctor 07/25/2018 11:10 AM Provider Raul Vincent DO [facility] Patient should have comprehensive metabolic panel checked by primary care doctor Patient should hold off blood pressure medication of HCTZ until follow up with primary care doctor Patient should avoid NSAID medications such as meloxicam Patent should avoid excessive narcotic medications Other appointments 07/27/2018 9:00 AM Provider Bj Carrasquillo MD Department Rheumatology [facility] 08/11/2018 10:30 AM Provider [facility], [facility] Total Time Total Time Spent Total Time Spent (In Minutes): 40 minutes Total Time Includes: Examination of the Patient, Discharge Planning, Medication Reconciliation and Communication With Other Providers Discharge Plan Discharge Items Patient Disposition: Home - Self-Care Reason For Visit: AMS,ACUTE RENAL FAILURE,HYPONATREMIA Discharge Diagnosis: Altered mental status (Metabolic encephalopathy secondary to use of narcotics and/or acute renal failure), acute renal failure (resolved), Chronic Pain syndrome, Hypomagnesemia, Hyponatremia, Hypokalemia, Hypertension Condition: Good Discharge Goals: Improve disease control Activity: Resume your previous activity Non-emergency contact: Primary Care Provider Call non-emergency contact if: you have any medication questions Follow-up/Referrals: Raul Vincent DO [Primary Care Provider] - Diet: Regular Addtl Provider Instructions: discharge to home Patient should take magnesium daily. Patient should follow up with primary care doctor 07/25/2018 11:10 AM Provider Raul Vincent DO Department Family Practice [facility] Patient should have comprehensive metabolic panel checked by primary care doctor Patient should hold off blood pressure medication of HCTZ until follow up with primary care doctor Patient should avoid NSAID medications such as meloxicam Patent should avoid excessive narcotic medications Other appointments 07/27/2018 9:00 AM Provider Bj Carrasquillo MD Department Rheumatology [facility] 08/11/2018 10:30 AM Provider [facility], [facility] Prescriptions: New magnesium oxide 400 mg magnesium capsule 400 mg PO QAM 30 Days Qty: 30 RF: 0 Continued aspirin [Aspirin Low Dose] 81 mg Tablet,Delayed Release (Dr/Ec) 81 mg PO DAILY RF: 0 gabapentin 300 mg capsule 600 mg PO BID RF: 0 mirtazapine 45 mg tablet 22.5 mg PO DAILY RF: 0 cholecalciferol (vitamin D3) 1,000 unit Tablet 1,000 unit PO DAILY RF: 0 Caltrate 600-D Plus Minerals 600 mg calcium- 800 unit-50 mg Tablet 1 tab PO DAILY RF: 0 Discontinued meloxicam 7.5 mg tablet 7.5 mg PO DAILY RF: 0 oxycodone-acetaminophen 5-325 mg tablet 1 tab PO QID RF: 0 oxycodone [OxyContin] 20 mg tablet,oral only,ext.rel.12 hr 20 mg PO TID PRN (Reason: Pain) RF: 0 Stand-Alone Forms: [facility] Discharge Orders: Discharge Order (Routine); Ordered 07/19/18 Ordered By: Eris Ruff Admission Data Admit Date/Time: 07/17/18 17:29 Attending Provider: Eris Ruff Admit Provider: Eris Ruff Primary Care Provider: Raul Vincent Other Providers: Pete Trejo ; Eusebia Burgess Service: Telemetry Medical Other Interventions: Discharge Summary Assessment (RN) Last Done: 07/19/18 15:09
[2018-07-21 02:49] LABS: Hydrocodone Urine NEGATIVE NG/ML (CUTOFF=50); Hydromor Urine NEGATIVE NG/ML (CUTOFF=50); Morphine Urine NEGATIVE NG/ML (CUTOFF=50); Norhydrocodone Conf Ur NEGATIVE NG/ML (CUTOFF=50); Noroxycodone Urine 12300 NG/ML (CUTOFF=50); Oxycodone Urine 2840 NG/ML (CUTOFF=50)
== END 2018-07-19 15:45 | disposition home or self-care (01) | DRG 682 ==
LOC: ED 14:38 → 2N 17:29

== ENCOUNTER 2019-09-24 13:59 | Inpatient (IN) ==
[2019-09-24] MEDS ORDERED: ONDANSETRON INJ 2 MG/ML 2 ML VIAL IV STA (14:22)
[2019-09-24] MEDS ORDERED: SODIUM CHLORIDE 0.9% 1000ML 1,000 ML IV ONE (14:22)
[2019-09-24] MEDS ORDERED: MoRPHine SULFATE 4 MG/ML 1 ML CARP\\VIAL IV STA (14:22)
[2019-09-24] MEDS ORDERED: IOVERSOL 100ml IV ONE (14:32)
--- NOTE | 2019-09-24 14:32 | Emergency Department Note ---
History of Present Illness General Chief complaint: Abdominal Pain Stated complaint: SURGICAL SITE PAIN Time Seen by Provider: 09/24/19 14:13 Source: patient Mode of arrival: ambulatory Limitations: no limitations History of Present Illness Maximum Pain Intensity: 7 This patient comes in with left-sided abdominal pain. It started but is gotten progressively worse. On she did have a colonoscopy done by Dr. Barrera. I did review the report she did have a diverticulosis and she also had a polyp which was snared and removed. She has had no rectal bleeding or blood or melena in her stool. She had normal bowel movement today. No fever chills or systemic complaints. Prior to the procedure, she did test COVID negative and has had no COVID exposure or symptoms since. Denies nausea or vomiting. No dysuria or hematuria. She has been using Motrin or Tylenol without much relief. No chest pain or shortness of breath or pleurisy. It hurts when she moves or pushes on it is better if she sits still or rubs it. She has had colonoscopies both before and says that she has not had pain like this afterwards. Home Medications Home Medications Medication Instructions Recorded Confirmed Type Caltrate 600-D Plus Minerals 1 tab PO QAM 07/17/18 09/24/19 History aspirin [Aspirin Low Dose] 81 mg PO QAM 07/17/18 09/24/19 History cholecalciferol (vitamin D3) 25 2,000 units PO QAM tab 10/26/18 09/24/19 History mcg (1,000 unit) tablet felodipine 5 mg PO BID 07/21/19 09/24/19 History gabapentin 400 mg capsule 400 mg PO TID 07/25/19 09/24/19 History bimatoprost [Lumigan] 1 drp OPB QPM 09/24/19 09/24/19 History mirtazapine 30 mg PO Q2D 09/24/19 09/24/19 History mirtazapine 45 mg PO Q2D 09/24/19 09/24/19 History timolol maleate 1 drp OPB HS 09/24/19 09/24/19 History Allergies Allergy/AdvReac Type Severity Reaction Status Date / Time codeine AdvReac Unknown Nausea/Vomi Verified 09/24/19 15:53 ting tetracycline AdvReac Unknown Nausea/Vomi Verified 09/24/19 15:53 ting cholesterol medicines Allergy Unknown RASH AND Uncoded 09/21/19 10:05 "FEELS LIKE HAVING A HEART ATTACK" tramadol AdvReac Unknown Nausea/Vomi Uncoded 09/24/19 15:53 ting Past Med/Surg History Medical History Back pain Detached retina, right last injection tx 07/11/19 Glaucoma History of depression HTN (hypertension) Hyperlipidemia Osteoporosis Surgical History History of appendectomy History of colon surgery had stenosed area in colon History of colonoscopy History of hysterectomy History of neck surgery "PUT CEMENT IN" Kyphoplasty - DENIES LIMITED ROM S/P cataract surgery Family History Father Myocardial infarction Hypertension Mother Hypertension Mother Family history of diabetes mellitus Denies family history of Ovarian cancer Prostate cancer Breast cancer Colorectal cancer Cancer Stroke Social History Smoking Status: Current some day smoker Second Hand Exposure: Yes; Do You Dip or Chew Tobacco: No; Tobacco Cessation Education Requested by Patient: No Hx Alcohol Use: No Hx Substance Use: No Preferred Language: Danish Communication Ability: Effective Visual Impairment: Diminished Hearing Ability: Normal 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 Beliefs That Will Affect Care: None marital status: / Current Living Situation: Alone Current Living Situation Comment: lives with a foster daughter current occupational status: retired Other Information That Helps Us Care for You: No Feels Safe at Home: Yes Safety Concerns: Feels Safe At This Time Childhood Exposure to Second-Hand Smoke: No Dental Care, Regularly: No Physical Activity Frequency: Other Physical Activity Frequency Comment: limited due to physical conditions Seatbelt Use: always Review of Systems A total of 10 systems reviewed and were otherwise negative Physical Exam Vital Signs Vital Signs - 24 hr 09/24/19 14:09 09/24/19 14:58 09/24/19 14:59 Temperature 36.9 C Temperature Source Oral Pulse Rate 73 72 71 Pulse Rate from SpO2 Sensor 72 71 Respiratory Rate 16 32 H 36 H Blood Pressure 153/94 H 163/111 H Blood Pressure Mean 113 127 Pulse Oximetry 97 97 95 Oxygen Delivery Method Room Air Sepsis Recent Fever Within 48 Hours No Sepsis New/Unexplained Change in Mental Status N/A Sepsis Action Taken by Nursing No Action Required 09/24/19 15:00 09/24/19 15:01 09/24/19 15:42 Temperature Temperature Source Pulse Rate 71 71 87 Pulse Rate from SpO2 Sensor 68 71 Respiratory Rate 41 H 38 H 28 H Blood Pressure 166/96 H Blood Pressure Mean 118 Pulse Oximetry 96 95 Oxygen Delivery Method Sepsis Recent Fever Within 48 Hours Sepsis New/Unexplained Change in Mental Status Sepsis Action Taken by Nursing General: Well developed well nourished middle-age female who appears in no acute distress, breathing comfortably on room air. Normal speech HEENT: Normal cephalic atraumatic. Pupils are equal round and reactive to light. Extraocular movements are intact. Oropharynx is pink with moist mucous membranes. No swelling of the mouth lips or tongue. Neck: Supple with a midline trachea. No meningeal signs or stiffness, no JVD or bruits. No Stridor. Chest: Clear to auscultation bilaterally. No wheezes or rhonchi. No increased work of breathing. Heart: Regular rate and rhythm without murmurs or gallops. Abdomen: Soft, nondistended but mildly tender in the left mid abdomen. No peritonitis. No rebound guarding or rigidity. Extremities: No cyanosis clubbing or edema. No calf tenderness or assymetry Spine/Back. Non tender to palpation. No CVA tenderness Skin: Good turgor without rashes. Neurologic exam: Cranial nerves two through 12 are intact. Motor and sensation are intact and symmetrical throughout. Course Administered Medications Discontinued Medications Sodium Chloride (Nss 1000ml) 1,000 mls @ 999 mls/hr IV .Q1H1M ONE Stop: 09/24/19 15:22 Last Infusion: 09/24/19 16:10 Dose: 0 mls/hr Documented by: [id number] Admin: 09/24/19 14:58 Dose: 999 mls/hr Documented by: [id number] Ioversol (Optiray 320 100ml) 93 ml IV ONCE ONE Stop: 09/24/19 14:33 Last Admin: 09/24/19 14:32 Dose: 93 ml Documented by: [id number] Morphine Sulfate (Morphine Sulfate) 2 mg IV NOW STA Stop: 09/24/19 14:23 Last Admin: 09/24/19 14:58 Dose: 2 mg Documented by: [id number] Morphine Sulfate (Morphine Sulfate) Confirm Administered Dose 2 mg .ROUTE .STK- MED ONE Stop: 09/24/19 14:50 Last Admin: 09/24/19 14:58 Dose: 2 mg Documented by: [id number] Morphine Sulfate (Morphine Sulfate) 2 mg IV NOW STA Stop: 09/24/19 15:26 Last Admin: 09/24/19 15:29 Dose: 2 mg Documented by: [id number] Ondansetron HCl (Zofran) 4 mg IV NOW STA Stop: 09/24/19 14:23 Last Admin: 09/24/19 14:58 Dose: Not Given Documented by: [id number] Medical Decision Making Differential Diagnosis Post procedure complication, bowel obstruction, perforation, abscess, diverticulitis, musculoskeletal, pain related to air/gas. Electrolyte or metabolic abnormalities, COVID Medical Records Attestation: I reviewed the patient's medical records. Home Medications Current Medication List: was personally reviewed by me Laboratory Data Attestation: I reviewed the patient's lab results. Result diagrams: 09/24/19 14:50 09/24/19 14:50 Lab Results 09/24/19 09/24/19 09/24/19 Range/Units 14:50 14:50 16:27 WBC 8.77 (4.8-10.8) K/uL RBC 3.57 L (4.2-5.4) M/uL Hgb 11.1 L (12.0-16.0) g/dL Hct 34.6 L (37-47) % MCV 96.9 (80-100) fL MCH 31.1 (25-34) pg MCHC 32.1 (32-36) g/dL RDW Std Deviation 50.0 H (36.4-46.3) fL RDW Coeff of [place] 14.1 (11.5-14.5) % Plt Count 203 (130-400) K/uL MPV 10.5 H (7.4-10.4) fL Immature Gran % (Auto) 0.1 % Neut % (Auto) 60.7 % Lymph % (Auto) 25.9 % [place] % (Auto) 8.9 % Eos % (Auto) 3.9 % Baso % (Auto) 0.5 % Neut # (Auto) 5.33 (1.4-6.5) K/uL Lymph # (Auto) 2.27 (1.2-3.4) K/uL [place] # (Auto) 0.78 H (0.11-0.59) K/uL Eos # (Auto) 0.34 (0-0.5) K/uL Baso # (Auto) 0.04 (0-0.2) K/uL Immature Gran # (Auto) 0.01 (0.00-0.02) K/uL Sodium 139 (136-145) mmol/L Potassium 4.2 (3.5-5.1) mmol/L Chloride 104 (98-107) mmol/L Carbon Dioxide 29 (21-32) mmol/L Anion Gap 6.0 (3-11) BUN 22 H (7-18) mg/dl Creatinine 1.21 H (0.6-1.2) mg/dl Est Cr Clr Drug Dosing 36.4 ml/min Est GFR ( Amer) 52.9 Est GFR (Non-Af Amer) 45.6 BUN/Creatinine Ratio 17.8 (10-20) Glucose 96 (70-99) mg/dl Calcium 9.4 (8.5-10.1) mg/dl Total Bilirubin 0.5 (0.2-1) mg/dl AST 21 (15-37) U/L ALT 18 (12-78) U/L Alkaline Phosphatase 108 (45-117) U/L Total Protein 7.4 (6.4-8.2) gm/dl Albumin 4.2 (3.4-5.0) gm/dl Globulin 3.2 (2.5-4.0) gm/dl Albumin/Globulin Ratio 1.3 (0.9-2) Lipase 234 (73-393) U/L Blood Type A Positive Antibody Screen NEGATIVE Crossmatch See Detail Imaging Data Radiologist's Impression: CT SCAN OF THE ABDOMEN AND PELVIS WITH IV CONTRAST CLINICAL HISTORY: Left-sided abdominal pain. Recent colonoscopy. COMPARISON STUDY: Abdominal CT dated 09/17/2011. TECHNIQUE: Following the IV administration of 93 cc of Optiray 320, CT scan of the abdomen and pelvis is performed from the lung bases to the proximal femora. Images are reviewed in the axial, sagittal, and coronal planes. IV contrast was administered without complication. A dose lowering technique was utilized adhering to the principles of ALARA. CT DOSE: 325.74 mGy.cm FINDINGS: Lung bases: The heart is enlarged and without pericardial effusion. The coronary arteries are densely calcified. The lung bases are clear. Liver: The contrast-enhanced liver is normal in size, contour, and attenuation. There is no intrahepatic biliary ductal dilatation. The hepatic veins and portal veins are patent. There is mild periportal edema. Gallbladder: There are small calcified gallstones with no CT evidence of acute cholecystitis. Spleen: There is a complex subcapsular fluid collection seen along the posterolateral aspect of the spleen. This measures up to 2.6 cm in diameter and is consistent with a subcapsular hematoma. This causes mild mass effect on the spleen. Question artifact versus a small laceration in the lower pole the spleen on image #97. Perisplenic blood is noted. Pancreas: Unremarkable. Adrenal glands: Unremarkable. Kidneys: The contrast enhanced kidneys demonstrate mild cortical atrophy and are without hydronephrosis. The kidneys enhance symmetrically. There is a small nonobstructing right renal calculus. A 12 mm hypodensity in the lower pole of the right kidney seen on image #191 and is new from 2012. This is pathologically indeterminant but does not meet criteria for simple cyst. Additional subce ntimeter cortical hypodensities may represent cysts but are too small for definitive characterization. Abdominal vasculature: There is advanced atherosclerotic calcification of the abdominal aorta. An infrarenal abdominal aortic aneurysm measures 3.0 x 2.8 cm (AP times transverse). Bowel: There is moderate constipation. No bowel obstruction is seen. Surgical clips are suggested along the descending colon. There are scattered colonic diverticula without CT evidence of acute diverticulitis. The appendix is not identified and reported surgically absent. Peritoneum: No intraperitoneal free air is seen. There is hemoperitoneum identified, with perisplenic blood seen tracking inferiorly along the left paracolic gutter. There is hyperdense fluid/hematoma in the pelvis seen on image #280. This measures approximately 5.5 x 3 cm. No active extravasation is seen at the time of examination. Lymphadenopathy: None. Pelvic viscera: The bladder is normal as visualized. The uterus is surgically a bsent. No adnexal lesion is seen. Skeletal structures: The skeletal structures are osteopenic. No lytic or blastic lesions are seen. Mild lumbosacral spondylosis is noted. There are bilateral sacral insufficiency fractures. There are age indeterminant nonunited left pubic ring fractures. IMPRESSION: 1. There is a subcapsular hematoma of the spleen. This measures up to 2.6 cm in diameter and causes mass effect on the splenic parenchyma. 2. There is associated perisplenic hemorrhage, with blood tracking inferiorly along the left paracolic gutter and with blood products/hematoma identified in the pelvis. No active extravasation is identified at the time of examination. 3. Question a tiny parenchymal laceration versus artifact in the lower pole of the spleen. 4. No pneumoperitoneum is identified. 5. There are bilateral sacral insufficiency fractures. 6. There are age indeterminant nonunited left pubic ring fractures. 7. Cardiomegaly. 8. There is a 12 mm cortical hypodensity in the lower pole of the right kidney which does not meet criteria for a simple cyst. This is pathologically indeterminant but new from a 2012 examination. Nonemergent renal protocol CT or MRI is recommended for further assessment. 9. There is a 3.0 infrarenal abdominal aortic aneurysm. 10. Additional findings as above. Blood Pressure Blood Pressure Findings: Elevated blood pressure Blood Pressure Disposition: elevated BP felt to be situational MDM Narrative This patient comes in as described above. She was placed on a quality assurance monitor chassis room B4. She had a colonoscopy done on she had left-sided abdominal pain starting evening. Is gotten worse. She is no peritonitis and she is afebrile here. It may be related to the gas or air from the procedure howev er want to rule out any other complication such as perforation abscess or obstruction. She also has diverticuli and I also wanted to rule out diverticulitis. She has a history of a small aneurysm as well and I did make sure that was not the case as well. I did order a CAT scan with IV contrast b lood work was obtained she was hydrated with a normal saline bolus. She was given morphine 2 mg IV and Zofran 4 mg IV for pain and nausea management. She tells me she has had morphine before without difficulties. She is also not driving. She did receive additional morphine. Her hemoglobin is 11.1 which is slightly down from her baseline in the 12 range. She has been lower than this before as well. She has no significant electrolyte or metabolic abnormalities. CAT scan was obtained and does show a subcapsular splenic hematoma. There is some blood around the spleen as well as the pericolic gutter and hematoma. I did consult Dr. Jimenez, our on-call surgeon, he promptly reviewed the CAT scan and came and saw the patient. Given that this happened on and she is hemodynamically stable and looks well he feels she can stay here for observation. He will be admitting her. I did type and cross her for 4 units just in case she needs additional blood. Additionally a second IV was established. Dr. Jimenez also asked me to consult medicine and I did consult in the medical team and they will see her for her other medical problems. Continuous cardiac monitoring: An order was placed for continuous cardiac monitoring. She was noted to be in normal sinus rhythm with a pulse of 73. Impression & Plan Postoperative hematoma of spleen following non-spleen procedure, Abdominal pain, S/P colonoscopy, Hematoma of pelvis Discharge Plan Visit Data *Final* Discharge Date/Time: 09/24/19 17:10 Chief Complaint: Abdominal Pain Stated Complaint: SURGICAL SITE PAIN ED Provider: Bj Dsouza Discharge Problem: Postoperative hematoma of spleen following non-spleen procedure, Abdominal pain, S/P colonoscopy, Hematoma of pelvis Patient Disposition: Admitted As Inpatient Discharge Instructions Interventions: ED Discharge Assessment Last Done: 09/24/19 17:10 Discharge Problem: Abdominal pain Qualifiers: Abdominal location: left lower quadrant Qualified Code(s): R10.32 - Left lower quadrant pain
[2019-09-24] MEDS ORDERED: MoRPHine SULFATE 2 MG/ML CARP ONE (14:49)
[2019-09-24 15:04] LABS: Basophils # (auto) 0.04 K/uL (0-0.2); Basophils % (auto) 0.5 %; Eosinophils # (auto) 0.34 K/uL (0-0.5); Eosinophils % (auto) 3.9 %; Hematocrit (blood only) 34.6 % (37-47); Hemoglobin 11.1 g/dL (12.0-16.0); Immature Granulocytes # (auto) 0.01 K/uL (0.00-0.02); Immature Granulocytes % (auto) 0.1 %; Lymphocytes # (auto) 2.27 K/uL (1.2-3.4); Lymphocytes % (auto) 25.9 %; Mean Corpuscular Hemoglobin 31.1 pg (25-34); Mean Corpuscular Hgb Conc 32.1 g/dL (32-36); Mean Corpuscular Volume 96.9 fL (80-100); Mean Platelet Volume 10.5 fL (7.4-10.4); Monocytes # (auto) 0.78 K/uL (0.11-0.59); Monocytes % (auto) 8.9 %; Neutrophils # (auto) 5.33 K/uL (1.4-6.5); Neutrophils % (auto) 60.7 %; Platelet Count 203 K/uL (130-400); RDW Coefficient of Variation 14.1 % (11.5-14.5); Red Blood Count 3.57 M/uL (4.2-5.4); White Blood Count 8.77 K/uL (4.8-10.8)
[2019-09-24 15:18] LABS: Albumin Level 4.2 gm/dl (3.4-5.0); BUN Creatinine Ratio 17.8 (10-20); Calcium 9.4 mg/dl (8.5-10.1); Creatinine Clr Calc Pharmacy 36.4 ml/min; Est GFR (African American) 52.9; Est GFR (Non-African American) 45.6; Potassium 4.2 mmol/L (3.5-5.1)
[2019-09-24 15:21] LABS: Albumin Globulin Ratio 1.3 (0.9-2); Bilirubin,Total 0.5 mg/dl (0.2-1); Globulin 3.2 gm/dl (2.5-4.0); Total Protein 7.4 gm/dl (6.4-8.2)
[2019-09-24] MEDS ORDERED: MoRPHine SULFATE 2 MG/ML CARP IV STA (15:25)
[2019-09-24] MEDS ORDERED: SODIUM CHLORIDE 0.9% 250 ML IV PRN (16:16)
--- NOTE | 2019-09-24 16:19 | CT Scan Report ---
CT SCAN OF THE ABDOMEN AND PELVIS WITH IV CONTRAST CLINICAL HISTORY: Left-sided abdominal pain. Recent colonoscopy. COMPARISON STUDY: Abdominal CT dated 09/17/2011. TECHNIQUE: Following the IV administration of 93 cc of Optiray 320, CT scan of the abdomen and pelvi s is performed from the lung bases to the proximal femora. Images are reviewed in the axial, sagittal , and coronal planes. IV contrast was administered without complication. A dose lowering technique wa s utilized adhering to the principles of ALARA. CT DOSE: 325.74 mGy.cm FINDINGS: Lung bases: The heart is enlarged and without pericardial effusion. The coronary arteries are densely calcified. The lung bases are clear. Liver: The contrast-enhanced liver is normal in size, contour, and attenuation. There is no intrahepa tic biliary ductal dilatation. The hepatic veins and portal veins are patent. There is mild periporta l edema. Gallbladder: There are small calcified gallstones with no CT evidence of acute cholecystitis. Spleen: There is a complex subcapsular fluid collection seen along the posterolateral aspect of the s pleen. This measures up to 2.6 cm in diameter and is consistent with a subcapsular hematoma. This cau ses mild mass effect on the spleen. Question artifact versus a small laceration in the lower pole the spleen on image #97. Perisplenic blood is noted. Pancreas: Unremarkable. Adrenal glands: Unremarkable. Kidneys: The contrast enhanced kidneys demonstrate mild cortical atrophy and are without hydronephros is. The kidneys enhance symmetrically. There is a small nonobstructing right renal calculus. A 12 mm hypodensity in the lower pole of the right kidney seen on image #191 and is new from 2012. This is pa thologically indeterminant but does not meet criteria for simple cyst. Additional subcentimeter corti branden hypodensities may represent cysts but are too small for definitive characterization. Abdominal vasculature: There is advanced atherosclerotic calcification of the abdominal aorta. An inf rarenal abdominal aortic aneurysm measures 3.0 x 2.8 cm (AP times transverse). Bowel: There is moderate constipation. No bowel obstruction is seen. Surgical clips are suggested sita ng the descending colon. There are scattered colonic diverticula without CT evidence of acute diverti culitis. The appendix is not identified and reported surgically absent. Peritoneum: No intraperitoneal free air is seen. There is hemoperitoneum identified, with perisplenic blood seen tracking inferiorly along the left paracolic gutter. There is hyperdense fluid/hematoma i n the pelvis seen on image #280. This measures approximately 5.5 x 3 cm. No active extravasation is s een at the time of examination. Lymphadenopathy: None. Pelvic viscera: The bladder is normal as visualized. The uterus is surgically absent. No adnexal lesi on is seen. Skeletal structures: The skeletal structures are osteopenic. No lytic or blastic lesions are seen. Mi ld lumbosacral spondylosis is noted. There are bilateral sacral insufficiency fractures. There are ag e indeterminant nonunited left pubic ring fractures. IMPRESSION: 1. There is a subcapsular hematoma of the spleen. This measures up to 2.6 cm in diameter and causes m ass effect on the splenic parenchyma. 2. There is associated perisplenic hemorrhage, with blood tracking inferiorly along the left paracoli c gutter and with blood products/hematoma identified in the pelvis. No active extravasation is identi fied at the time of examination. 3. Question a tiny parenchymal laceration versus artifact in the lower pole of the spleen. 4. No pneumoperitoneum is identified. 5. There are bilateral sacral insufficiency fractures. 6. There are age indeterminant nonunited left pubic ring fractures. 7. Cardiomegaly. 8. There is a 12 mm cortical hypodensity in the lower pole of the right kidney which does not meet cr iteria for a simple cyst. This is pathologically indeterminant but new from a 2012 examination. Nonem ergent renal protocol CT or MRI is recommended for further assessment. 9. There is a 3.0 infrarenal abdominal aortic aneurysm. 10. Additional findings as above. Findings discussed with Dr. Dsouza in the emergency department at the time of interpretation. ACT 112: Negative or not required by law. Electronically signed by: Mateus Munoz M.D. 09/24/2019 4:18 PM
--- NOTE | 2019-09-24 16:46 | History & Physical Report ---
Date of Service September 24, 2019 Assessment & Plan (1) Spleen hematoma: Patient with a splenic hematoma status post colonoscopy 3 days prior Does not appear that the patient is having ongoing active bleeding We will admit her to the hospital for observation and bedrest with bathroom privileges overnight Recheck her H&H tomorrow She may require 2 to 3 days in the hospital be sure she is stable We will asked the medical team to evaluate her for her medications and medical management There liquids today History of Present Illness Primary Care Provider: Sanjeev Schaffer MD 68-year-old female who 3 days prior to her underwent colonoscopy and has been having left upper quadrant pain since Presenting to the emergency room for evaluation and her CAT scan showing a splenic hematoma with some fluid in the pelvis Her H&H is stable and her vital signs are stable She appears clinically normal Allergies Allergy/AdvReac Type Severity Reaction Status Date / Time codeine AdvReac Unknown Nausea/Vomi Verified 09/24/19 15:53 ting tetracycline AdvReac Unknown Nausea/Vomi Verified 09/24/19 15:53 ting cholesterol medicines Allergy Unknown RASH AND Uncoded 09/21/19 10:05 "FEELS LIKE HAVING A HEART ATTACK" tramadol AdvReac Unknown Nausea/Vomi Uncoded 09/24/19 15:53 ting Home Medications Home Medications Medication Instructions Recorded Confirmed Type Caltrate 600-D Plus Minerals 1 tab PO QAM 07/17/18 09/24/19 History aspirin [Aspirin Low Dose] 81 mg PO QAM 07/17/18 09/24/19 History cholecalciferol (vitamin D3) 25 2,000 units PO QAM tab 10/26/18 09/24/19 History mcg (1,000 unit) tablet felodipine 5 mg PO BID 07/21/19 09/24/19 History gabapentin 400 mg capsule 400 mg PO TID 07/25/19 09/24/19 History bimatoprost [Lumigan] 1 drp OPB QPM 09/24/19 09/24/19 History mirtazapine 30 mg PO Q2D 09/24/19 09/24/19 History mirtazapine 45 mg PO Q2D 09/24/19 09/24/19 History timolol maleate 1 drp OPB HS 09/24/19 09/24/19 History Past Med/Surg History Medical History Back pain Detached retina, right last injection tx 07/11/19 Glaucoma History of depression HTN (hypertension) Hyperlipidemia Osteoporosis Surgical History History of appendectomy History of colon surgery had stenosed area in colon History of colonoscopy History of hysterectomy History of neck surgery "PUT CEMENT IN" Kyphoplasty - DENIES LIMITED ROM S/P cataract surgery Family History Father Myocardial infarction Hypertension Mother Hypertension Mother Family history of diabetes mellitus Denies family history of Ovarian cancer Prostate cancer Breast cancer Colorectal cancer Cancer Stroke Social History Smoking Status: Never smoker Second Hand Exposure: No; Hx Alcohol Use: No Hx Substance Use: No Preferred Language: Uzbek Communication Ability: Effective Visual Impairment: Diminished Hearing Ability: Normal [employer] Consultant Required: No Beliefs That Will Affect Care: None marital status: / Current Living Situation: Alone Current Living Situation Comment: lives with a foster daughter current occupational status: retired Feels Safe at Home: Yes Childhood Exposure to Second-Hand Smoke: No Dental Care, Regularly: No Physical Activity Frequency: Other Physical Activity Frequency Comment: limited due to physical conditions Seatbelt Use: always Review of Systems Review of Systems: All systems reviewed & are unremarkable except as noted in HPI & below Physical Exam Physical Exam: Patient's abdomen is soft with mild discomfort in the left upper quadrant to deep palpation Constitutional: well developed; no acute distress Eyes: + anicteric sclerae Respiratory: normal respiratory effort; no respiratory distress Cardiovascular: Rate/Rhythm: regular rate Musculoskeletal: Head/Neck/Chest: head atraumatic Skin: no rashes, warm and dry Neurologic: awake Psychiatric: Orientation: alert Results & Data Results & Data ([facility]) Vital Signs (Past 12 Hours) Vital Signs Temp Pulse Resp BP Pulse Ox 09/24/19 14:09 36.9 C 73 16 153/94 H 97 PG Care Time/CCT Total # of Minutes Spent Total Time Spent with Patient: Total time spent is greater than 50% in coordination of care (as documented) at patient's floor/unit and/or counseling patient: Coding Level of Care Code 46757 Initial Inpt Care Lvl 3 Diagnoses Spleen hematoma S36.029A
[2019-09-24] MEDS ORDERED: LACTATED RINGER'S 1,000 ML IV SCH (17:59)
[2019-09-24] MEDS ORDERED: HYDROCODONE/ACETAMOPHEN 5/325MG TAB PO PRN (17:59)
[2019-09-24] MEDS ORDERED: ONDANSETRON INJ 2 MG/ML 2 ML VIAL IV PRN (17:59)
[2019-09-24] MEDS ORDERED: ACETAMINOPHEN 325 MG TAB PO PRN (17:59)
[2019-09-24] MEDS ORDERED: PROMETHAZINE HCL 12.5 MG in SODIUM CHLORIDE 0.9% 50 ML IV PRN (17:59)
[2019-09-24] MEDS: MoRPHine SULFATE 2 MG/ML CARP IV PRN (19:02)
[2019-09-24] MEDS: FELODIPINE 5 MG TABCR PO SCH (19:54)
[2019-09-24] MEDS: TIMOLOL MALEATE 0.25% OP SOLN 5 ML BTL OPB SCH (19:55)
[2019-09-24] MEDS: GABAPENTIN 400 MG CAP PO SCH (19:55)
[2019-09-24] MEDS: BIMATOPROST 0.01% OP SOLN 2.5 ML BTL OPB SCH (19:56)
[2019-09-24] MEDS ORDERED: MIRTAZAPINE TAB 15 MG TAB PO SCH (21:00)
--- NOTE | 2019-09-24 21:23 | Hospitalist Consultation ---
Date of Consultation September 24, 2019 Assessment & Plan (1) Spleen hematoma: Management as per surgery. Subcapsular hematoma of spleen with perisplenic hemorrhage. Stop aspirin, no VTE prophylaxis. CBC with AM labs (2) Renal lesion: Incidental finding on CT of 12mm cortical hypodensity. (3) Bilateral sacral insufficiency fracture: Chronic low back pain. Previously opiate abuse. Does not appear to be having symptoms from this at present. (4) Essential hypertension: Continue felodipine 5mg PO BID (5) Glaucoma: Continue her usual Lumigan and Timolol eye drops History of Present Illness Reason for Consultation: Medical Management Attending Physician: Masoud Jimenez MD, [facility] History of Present Illness Danielle Claire is a 68 year old female who presented to the ER today with increasing LUQ swelling and pain since her colonoscopy 3 days earlier. Pain in constant. Currently mild 2/10. No radiation. She was admitted under surgery due to splenic hematoma. No melena or bright red blood in stool. No nausea or vomiting. No improvement with acetaminophen or Motrin. She denies any falls. No lightheadedness, shortness of breath or chest pain associated with anemia. When seen in PCU she was resting in bed. No concerns or questions at this time. Allergies Allergy/AdvReac Type Severity Reaction Status Date / Time codeine AdvReac Unknown Nausea/Vomi Verified 09/24/19 15:53 ting tetracycline AdvReac Unknown Nausea/Vomi Verified 09/24/19 15:53 ting cholesterol medicines Allergy Unknown RASH AND Uncoded 09/21/19 10:05 "FEELS LIKE HAVING A HEART ATTACK" tramadol AdvReac Unknown Nausea/Vomi Uncoded 09/24/19 15:53 ting Home Medications Home Medications Medication Instructions Recorded Confirmed Type Caltrate 600-D Plus Minerals 1 tab PO QAM 07/17/18 09/24/19 History aspirin [Aspirin Low Dose] 81 mg PO QAM 07/17/18 09/24/19 History cholecalciferol (vitamin D3) 25 2,000 units PO QAM tab 10/26/18 09/24/19 History mcg (1,000 unit) tablet felodipine 5 mg PO BID 07/21/19 09/24/19 History gabapentin 400 mg capsule 400 mg PO TID 07/25/19 09/24/19 History bimatoprost [Lumigan] 1 drp OPB QPM 09/24/19 09/24/19 History mirtazapine 30 mg PO Q2D 09/24/19 09/24/19 History mirtazapine 45 mg PO Q2D 09/24/19 09/24/19 History timolol maleate 1 drp OPB HS 09/24/19 09/24/19 History Patient History Medical History Back pain Detached retina, right last injection tx 07/11/19 Glaucoma History of depression HTN (hypertension) Hyperlipidemia Osteoporosis Surgical History History of appendectomy History of colon surgery had stenosed area in colon History of colonoscopy History of hysterectomy History of neck surgery "PUT CEMENT IN" Kyphoplasty - DENIES LIMITED ROM S/P cataract surgery Family History Father Myocardial infarction Hypertension Mother Hypertension Mother Family history of diabetes mellitus Denies family history of Ovarian cancer Prostate cancer Breast cancer Colorectal cancer Cancer Stroke Social History Smoking Status: Current some day smoker Second Hand Exposure: Yes; Do You Dip or Chew Tobacco: No; Tobacco Cessation Education Requested by Patient: No Hx Alcohol Use: No Hx Substance Use: No Preferred Language: Cymraes Communication Ability: Effective Visual Impairment: Diminished Hearing Ability: Normal Silica Spray Mixer Required: No Beliefs That Will Affect Care: None marital status: / Current Living Situation: Alone Current Living Situation Comment: lives with a foster daughter current occupational status: retired Other Information That Helps Us Care for You: No Feels Safe at Home: Yes Safety Concerns: Feels Safe At This Time Childhood Exposure to Second-Hand Smoke: No Dental Care, Regularly: No Physical Activity Frequency: Other Physical Activity Frequency Comment: limited due to physical conditions Seatbelt Use: always Review of Systems Review of Systems: All systems reviewed & are unremarkable except as noted in HPI & below Physical Exam Constitutional: well developed; + not well nourished and no acute distress Eyes: + anicteric sclerae; normal pupil size ENMT: external ear and nose normal, oropharynx normal Neck: trachea midline, no thyromegaly Respiratory: normal respiratory effort, lungs clear to auscultation Cardiovascular: Rate/Rhythm: regular rate and regular rhythm Heart Sounds: no murmur Vessels: radial pulses present; no JVD Extremities: normal capillary refill; no calf tenderness and no pedal edema Gastrointestinal (Abdomen): Inspection/Auscultation: abdomen normal to insp ection and normal bowel sounds Percussion/Palpation: + abdomen tender (LUQ on mild palpation) and abdomen soft; no guarding and abdomen not rigid Musculoskeletal: no cyanosis or clubbing, extremities motor strength 5/5 Skin: no rashes, warm and dry Neurologic: moves all extremities and awake; not confused Psychiatric: A+Ox3, euthymic affect Genitourinary: no CVA tenderness Results & Data Results & Data ([facility]) Vital Signs (Past 12 Hours) Vital Signs Temp Pulse Pulse Resp BP BP Pulse Ox 09/24/19 17:44 37 C 72 18 168/88 H 95 09/24/19 15:42 87 28 H 09/24/19 15:01 71 38 H 95 09/24/19 15:00 71 41 H 166/96 H 96 09/24/19 14:59 71 36 H 95 09/24/19 14:58 72 32 H 163/111 H 97 09/24/19 14:09 36.9 C 73 16 153/[address] SCAN OF THE ABDOMEN AND PELVIS WITH IV CONTRAST IMPRESSION: 1. There is a subcapsular hematoma of the spleen. This measures up to 2.6 cm in diameter and causes mass effect on the splenic parenchyma. 2. There is associated perisplenic hemorrhage, with blood tracking inferiorly along the left paracolic gutter and with blood products/hematoma identified in the pelvis. No active extravasation is identified at the time of examination. 3. Question a tiny parenchymal laceration versus artifact in the lower pole of the spleen. 4. No pneumoperitoneum is identified. 5. There are bilateral sacral insufficiency fractures. 6. There are age indeterminant nonunited left pubic ring fractures. 7. Cardiomegaly. 8. There is a 12 mm cortical hypodensity in the lower pole of the right kidney which does not meet criteria for a simple cyst. This is pathologically indeterminant but new from a 2012 examination. Nonemergent renal protocol CT or MRI is recommended for further assessment. 9. There is a 3.0 infrarenal abdominal aortic aneurysm. 10. Additional findings as above. PG Care Time/CCT Total # of Minutes Spent Total Time Spent with Patient: Total time spent is greater than 50% in coordination of care (as documented) at patient's floor/unit and/or counseling patient: Coding Level of Care Code 99618 Inpt Consult Level 4 Diagnoses Spleen hematoma S36.029A Renal lesion N28.9 Bilateral sacral insufficiency fracture M84.48XA Encounter type: subsequent encounter Essential hypertension I10 Glaucoma H40.9 (1) Bilateral sacral insufficiency fracture Encounter type: subsequent encounter
[2019-09-24 21:40] LABS: Appearance Urine Clear (Clear); Bacteria Urine Automated Negative (Negative); Bilirubin Urine Negative (Negative); Blood Urine Negative (Negative); Color Urine Yellow; Glucose Urine UA Negative (Negative); Ketones Urine Negative (Negative); Leukocyte Esterase Urine 1+ (Negative); Nitrite Urine Negative (Negative); Protein Urine Negative (Negative); RBC Urine Automated 0-4 /hpf (0-4); Specific Gravity Urine 1.025 (1.000-1.030); Urobilinogen Urine Negative (Negative); pH Urine 7.5 (4.5-7.5)
[2019-09-25] MEDS: MoRPHine SULFATE 2 MG/ML CARP IV PRN ×4 (01:47→17:58)
[2019-09-25 05:53] LABS: Basophils # (auto) 0.04 K/uL (0-0.2); Basophils % (auto) 0.6 %; Eosinophils # (auto) 0.33 K/uL (0-0.5); Eosinophils % (auto) 4.8 %; Hematocrit (blood only) 29.2 % (37-47); Hemoglobin 9.5 g/dL (12.0-16.0); Immature Granulocytes # (auto) 0.01 K/uL (0.00-0.02); Immature Granulocytes % (auto) 0.1 %; Lymphocytes # (auto) 2.47 K/uL (1.2-3.4); Lymphocytes % (auto) 35.7 %; Mean Corpuscular Hemoglobin 31.5 pg (25-34); Mean Corpuscular Hgb Conc 32.5 g/dL (32-36); Mean Corpuscular Volume 96.7 fL (80-100); Mean Platelet Volume 10.5 fL (7.4-10.4); Monocytes # (auto) 0.61 K/uL (0.11-0.59); Monocytes % (auto) 8.8 %; Neutrophils # (auto) 3.46 K/uL (1.4-6.5); Platelet Count 177 K/uL (130-400); RDW Coefficient of Variation 14.2 % (11.5-14.5); RDW Standard Deviation 50.4 fL (36.4-46.3); Red Blood Count 3.02 M/uL (4.2-5.4); White Blood Count 6.92 K/uL (4.8-10.8)
[2019-09-25 06:42] LABS: Albumin Level 3.1 gm/dl (3.4-5.0); BUN Creatinine Ratio 16.1 (10-20); Bilirubin,Total 0.4 mg/dl (0.2-1); Creatinine Clr Calc Pharmacy 51.2 ml/min; Est GFR (African American) 77.7; Globulin 3.1 gm/dl (2.5-4.0); Potassium 4.5 mmol/L (3.5-5.1); Total Protein 6.2 gm/dl (6.4-8.2)
--- NOTE | 2019-09-25 06:55 | Surgery Progress Note ---
Date of Service September 25, 2019 Assessment & Plan (1) Spleen hematoma: I do not think the patient is having any active bleeding with her excellent urine output Labile vital signs and asymptomatic Do not feel comfortable discharging her home yet I do feel we should check another blood count later and possibly plan on letting her go home tomorrow I do feel she can be out of bed as tolerated Subjective Patient is awake and alert She is asymptomatic when getting out of bed Is very good urine output H&H did drop with hydration Physical Exam Physical Exam: She is awake and alert and responsive Her abdomen is flat and soft minimal tenderness Constitutional: well developed; no acute distress Eyes: + anicteric sclerae Respiratory: normal respiratory effort; no respiratory distress Cardiovascular: Rate/Rhythm: regular rate Skin: no rashes, warm and dry Neurologic: awake Psychiatric: Orientation: alert Results & Data Vital Signs (Past 12 Hours) Vital Signs Temp Pulse Resp BP Pulse Ox 09/25/19 03:28 36.6 C 64 18 118/75 91 09/25/19 00:22 36.5 C 66 16 115/75 91 09/24/19 19:46 36.4 C L 78 18 157/93 H 96 PG Care Time/CCT Total # of Minutes Spent Total Time Spent with Patient: Total time spent is greater than 50% in coordination of care (as documented) at patient's floor/unit and/or counseling patient: Coding Level of Care Code 90002 Subseq Hosp Care Lvl 3 Diagnoses Spleen hematoma S36.029A
[2019-09-25] MEDS: HYDROCODONE/ACETAMOPHEN 5/325MG TAB PO PRN (08:43)
[2019-09-25] MEDS: FELODIPINE 5 MG TABCR PO SCH ×2 (08:44→20:43)
[2019-09-25] MEDS: GABAPENTIN 400 MG CAP PO SCH ×3 (08:44→20:43)
[2019-09-25] MEDS: CHOLECALCIFEROL 1,000 UNITS 25 MCG TAB PO SCH (08:44)
[2019-09-25] MEDS: CALCIUM 600MG + VIT D 400 IU TAB PO SCH (08:45)
--- NOTE | 2019-09-25 08:58 | Hospitalist Progress Note ---
Date of Service September 25, 2019 Assessment & Plan (1) Spleen hematoma: * Patient presented s/p colonoscopy on 09/[address] Barrera with abdominal pain and found to have a 2.6cm subcapsular hematoma of spleen with perisplenic hemorrhage. No extravasation identified. Questionable tiny parenchymal laceration vs artifact lower pole of spleen. * General surgery (Dr. Jimenez) as primary service -- pain management/pt/ot/dvt proph per primary * Holding ASA -- no VTE prophylaxis in setting of splenic hematoma * H/h dropped to 9.5/29.2 (was 12.6/37 prior to colonoscopy and 11.1/34.6 on admission) --of note, had been on IVF until later morning 09/24, d/c'd * Repeat labs this afternoon ordered * CBC with AM labs (2) Acute blood loss anemia: * Secondary to above in combination with dilutional from IVF. * MCV 96.7 on am labs --> B12 470 on August 28, 2019. Dec 2018 iron 81. * Continue to monitor (3) DERRICK (acute kidney injury): * Cr 1.21 on admission --likely prerenal, secondary to acute blood loss/hematoma as above * RESOLVED -- Given IVF, discontinued 09/24 * Cr 0.88 on AM labs * Monitor (4) Essential hypertension: * Chronic. * Stable, BP currently 120/76 * Continue felodipine 5mg PO BID * Continue to monitor (5) Renal lesion: * Incidental finding on CT of 12mm cortical hypodensity -- f/u outpt with nonemergent renal CT or MRI for further assessment. Pathologically indeterminant but new from 2011 imaging (6) Bilateral sacral insufficiency fracture: * Chronic low back pain. Previously opiate abuse. Bilateral sacral insufficiency fractures and age indeterminant nonunited L pubic ring fx noted on CTAP * Not symptomatic at this time * Had previously been on meloxicam but had discontinued this secondary to DERRICK with elevated Cr x 4 requiring hospitalization July 2018. Takes diclofenac as needed, not regularly --> will need to avoid NSAIDs in current setting * Had been evaluated by pain management in the past (7) Glaucoma: * Continue her usual Lumigan and Timolol eye drops (8) Aortic aneurysm: * Noted to be 3.0 x 2.8cm infrarenal abdominal aortic aneursym on CTA/P (noted on imaging August 2018 per PCP notes with rec for US follow up in 2-3 years) * --> US August 2019 with mild aortic extasia, no evidence of discrete aneursym -- measures 3cm max proximally and 27mm distally (essentially the same) * Recommended vascular evaluation and was ordered by PCP but pt not completed b/c of back pain at that time (9) DVT prophylaxis: * SCDs * Chemoproph held in setting of #1 Dispo: if h/h stable in AM, possible discharge per primary service Thank you for allowing hospitalist service to participate in the care of Ms. Claire. Hospitalist service will follow along. Admission and Anticipated Discharge Date Admission Date: September 24, 2019 Supervising Physician Co-Signing Physician Notes PA Supervision Note: I did not personally see or examine the patient today, but I verified all juarez points of KELSEA Weaver's assessment and plan with the following exceptions/additions: None Subjective Patient evaluated this morning and in the afternoon. Did have some increased pain LUQ but controlled with morphine. She had originally been trying to stay away from the morphine and trialed PO pain medication but states she did "need a shot" as it did not take the edge off. Describes as a sharp grabbing pain LUQ and right beneath ribcage, denies "stabbing" sensation. Radiates to her flank and back. States she had been up and walking the halls this morning that went alright, mild discomfort after her walk. Denies fever, chills, headache, blurred vision, chest pain, shortness of breath, vomiting, dysuria, constipation at this time. Review of Systems Review of Systems: All systems reviewed & are unremarkable except as noted in HPI & below Physical Exam Constitutional: well developed and well nourished; no acute distress Eyes: + anicteric sclerae; normal pupil size Neck: trachea midline, no thyromegaly Respiratory: normal respiratory effort, lungs clear to auscultation Cardiovascular: Rate/Rhythm: regular rate and regular rhythm Heart Sounds: no murmur Vessels: radial pulses present; no JVD Extremities: normal capillary refill; no calf tenderness and no pedal edema Gastrointestinal (Abdomen): Inspection/Auscultation: abdomen normal to inspect ion and normal bowel sounds Percussion/Palpation: + abdomen tender (LUQ on mild palpation), + guarding and abdomen soft; abdomen not rigid Musculoskeletal: no cyanosis or clubbing, extremities motor strength 5/5 Skin: no rashes, warm and dry Neurologic: moves all extremities and awake; not confused Psychiatric: A+Ox3, euthymic affect Genitourinary: no CVA tenderness Results & Data Results & Data ([facility]) Vital Signs (Past 12 Hours) Vital Signs Temp Pulse Resp BP Pulse Ox 09/25/19 07:20 36.5 C 65 18 134/84 92 09/25/19 03:28 36.6 C 64 18 118/75 91 09/25/19 00:22 36.5 C 66 16 115/75 91 Laboratory Results 09/25/19 09/25/19 09/24/19 Range/Units 05:35 05:35 21:15 WBC 6.92 (4.8-10.8) K/uL RBC 3.02 L (4.2-5.4) M/uL Hgb 9.5 L (12.0-16.0) g/dL Hct 29.2 L (37-47) % MCV 96.7 (80-100) fL MCH 31.5 (25-34) pg MCHC 32.5 (32-36) g/dL RDW Std Deviation 50.4 H (36.4-46.3) fL RDW Coeff of [place] 14.2 (11.5-14.5) % Plt Count 177 (130-400) K/uL MPV 10.5 H (7.4-10.4) fL Immature Gran % (Auto) 0.1 % Neut % (Auto) 50.0 % Lymph % (Auto) 35.7 % Falls % (Auto) 8.8 % Eos % (Auto) 4.8 % Baso % (Auto) 0.6 % Neut # (Auto) 3.46 (1.4-6.5) K/uL Lymph # (Auto) 2.47 (1.2-3.4) K/uL Falls # (Auto) 0.61 H (0.11-0.59) K/uL Eos # (Auto) 0.33 (0-0.5) K/uL Baso # (Auto) 0.04 (0-0.2) K/uL Immature Gran # (Auto) 0.01 (0.00-0.02) K/uL Sodium 142 (136-145) mmol/L Potassium 4.5 (3.5-5.1) mmol/L Chloride 108 H (98-107) mmol/L Carbon Dioxide 32 (21-32) mmol/L Anion Gap 1.0 L (3-11) BUN 14 (7-18) mg/dl Creatinine 0.88 D (0.6-1.2) mg/dl Est Cr Clr Drug Dosing 51.2 ml/min Est GFR ( Amer) 77.7 Est GFR (Non-Af Amer) 67.0 BUN/Creatinine Ratio 16.1 (10-20) Glucose 82 (70-99) mg/dl Calcium 9.0 (8.5-10.1) mg/dl Phosphorus 3.0 (2.5-4.9) mg/dl Total Bilirubin 0.4 (0.2-1) mg/dl AST 13 L (15-37) U/L ALT 13 (12-78) U/L Alkaline Phosphatase 94 (45-117) U/L Total Protein 6.2 L (6.4-8.2) gm/dl Albumin 3.1 L (3.4-5.0) gm/dl Globulin 3.1 (2.5-4.0) gm/dl Albumin/Globulin Ratio 1.0 (0.9-2) Lipase (73-393) U/L Urine Color Yellow Urine Appearance Clear (Clear) Urine pH 7.5 (4.5-7.5) Ur Specific [place] 1.025 (1.000-1.030) Urine Protein Negative (Negative) Urine Glucose (UA) Negative (Negative) Urine Ketones Negative (Negative) Urine Blood Negative (Negative) Urine Nitrite Negative (Negative) Urine Bilirubin Negative (Negative) Urine Urobilinogen Negative (Negative) Ur Leukocyte Esterase 1+ H (Negative) Urine WBC (Auto) 1-5 (0-5) /hpf Urine RBC (Auto) 0-4 (0-4) /hpf U Hyaline Cast (Auto) 1-5 (0-5) /lpf U Epithel Cells (Auto) 10-20 H (0-5) /lpf Urine Bacteria (Auto) Negative (Negative) Blood Type Blood Type Recheck Antibody Screen Crossmatch 09/24/19 09/24/19 09/24/19 Range/Units 17:51 16:27 14:50 WBC (4.8-10.8) K/uL RBC (4.2-5.4) M/uL Hgb (12.0-16.0) g/dL Hct (37-47) % MCV (80-100) fL MCH (25-34) pg MCHC (32-36) g/dL RDW Std Deviation (36.4-46.3) fL RDW Coeff of [place] (11.5-14.5) % Plt Count (130-400) K/uL MPV (7.4-10.4) fL Immature Gran % (Auto) % Neut % (Auto) % Lymph % (Auto) % Falls % (Auto) % Eos % (Auto) % Baso % (Auto) % Neut # (Auto) (1.4-6.5) K/uL Lymph # (Auto) (1.2-3.4) K/uL Falls # (Auto) (0.11-0.59) K/uL Eos # (Auto) (0-0.5) K/uL Baso # (Auto) (0-0.2) K/uL Immature Gran # (Auto) (0.00-0.02) K/uL Sodium 139 (136-145) mmol/L Potassium 4.2 (3.5-5.1) mmol/L Chloride 104 (98-107) mmol/L Carbon Dioxide 29 (21-32) mmol/L Anion Gap 6.0 (3-11) BUN 22 H (7-18) mg/dl Creatinine 1.21 H (0.6-1.2) mg/dl Est Cr Clr Drug Dosing 36.4 ml/min Est GFR ( Amer) 52.9 Est GFR (Non-Af Amer) 45.6 BUN/Creatinine Ratio 17.8 (10-20) Glucose 96 (70-99) mg/dl Calcium 9.4 (8.5-10.1) mg/dl Phosphorus (2.5-4.9) mg/dl Total Bilirubin 0.5 (0.2-1) mg/dl AST 21 (15-37) U/L ALT 18 (12-78) U/L Alkaline Phosphatase 108 (45-117) U/L Total Protein 7.4 (6.4-8.2) gm/dl Albumin 4.2 (3.4-5.0) gm/dl Globulin 3.2 (2.5-4.0) gm/dl Albumin/Globulin Ratio 1.3 (0.9-2) Lipase 234 (73-393) U/L Urine Color Urine Appearance (Clear) Urine pH (4.5-7.5) Ur Specific [place] (1.000-1.030) Urine Protein (Negative) Urine Glucose (UA) (Negative) Urine Ketones (Negative) Urine Blood (Negative) Urine Nitrite (Negative) Urine Bilirubin (Negative) Urine Urobilinogen (Negative) Ur Leukocyte Esterase (Negative) Urine WBC (Auto) (0-5) /hpf Urine RBC (Auto) (0-4) /hpf U Hyaline Cast (Auto) (0-5) /lpf U Epithel Cells (Auto) (0-5) /lpf Urine Bacteria (Auto) (Negative) Blood Type A Positive Blood Type Recheck A Positive Antibody Screen NEGATIVE Crossmatch See Detail 09/24/19 Range/Units 14:50 WBC 8.77 (4.8-10.8) K/uL RBC 3.57 L (4.2-5.4) M/uL Hgb 11.1 L (12.0-16.0) g/dL Hct 34.6 L (37-47) % MCV 96.9 (80-100) fL MCH 31.1 (25-34) pg MCHC 32.1 (32-36) g/dL RDW Std Deviation 50.0 H (36.4-46.3) fL RDW Coeff of [place] 14.1 (11.5-14.5) % Plt Count 203 (130-400) K/uL MPV 10.5 H (7.4-10.4) fL Immature Gran % (Auto) 0.1 % Neut % (Auto) 60.7 % Lymph % (Auto) 25.9 % Falls % (Auto) 8.9 % Eos % (Auto) 3.9 % Baso % (Auto) 0.5 % Neut # (Auto) 5.33 (1.4-6.5) K/uL Lymph # (Auto) 2.27 (1.2-3.4) K/uL Falls # (Auto) 0.78 H (0.11-0.59) K/uL Eos # (Auto) 0.34 (0-0.5) K/uL Baso # (Auto) 0.04 (0-0.2) K/uL Immature Gran # (Auto) 0.01 (0.00-0.02) K/uL Sodium (136-145) mmol/L Potassium (3.5-5.1) mmol/L Chloride (98-107) mmol/L Carbon Dioxide (21-32) mmol/L Anion Gap (3-11) BUN (7-18) mg/dl Creatinine (0.6-1.2) mg/dl Est Cr Clr Drug Dosing ml/min Est GFR ( Amer) Est GFR (Non-Af Amer) BUN/Creatinine Ratio (10-20) Glucose (70-99) mg/dl Calcium (8.5-10.1) mg/dl Phosphorus (2.5-4.9) mg/dl Total Bilirubin (0.2-1) mg/dl AST (15-37) U/L ALT (12-78) U/L Alkaline Phosphatase (45-117) U/L Total Protein (6.4-8.2) gm/dl Albumin (3.4-5.0) gm/dl Globulin (2.5-4.0) gm/dl Albumin/Globulin Ratio (0.9-2) Lipase (73-393) U/L Urine Color Urine Appearance (Clear) Urine pH (4.5-7.5) Ur Specific [place] (1.000-1.030) Urine Protein (Negative) Urine Glucose (UA) (Negative) Urine Ketones (Negative) Urine Blood (Negative) Urine Nitrite (Negative) Urine Bilirubin (Negative) Urine Urobilinogen (Negative) Ur Leukocyte Esterase (Negative) Urine WBC (Auto) (0-5) /hpf Urine RBC (Auto) (0-4) /hpf U Hyaline Cast (Auto) (0-5) /lpf U Epithel Cells (Auto) (0-5) /lpf Urine Bacteria (Auto) (Negative) Blood Type Blood Type Recheck Antibody Screen Crossmatch PG Care Time/CCT Total # of Minutes Spent Total Time Spent with Patient: Total time spent is greater than 50% in coordination of care (as documented) at patient's floor/unit and/or counseling patient: Coding Level of Care Code 77078 Subseq Hosp Care Lvl 3 Diagnoses Spleen hematoma S36.029A Acute blood loss anemia D62 DERRICK (acute kidney injury) N17.9 Essential hypertension I10 Renal lesion N28.9 Bilateral sacral insufficiency fracture M84.48XA Encounter type: subsequent encounter Glaucoma H40.9 Aortic aneurysm I71.9 DVT prophylaxis Z29.9 (1) Bilateral sacral insufficiency fracture Encounter type: subsequent encounter
[2019-09-25 15:12] LABS: Hematocrit (blood only) 29.9 % (37-47); Hemoglobin 9.3 g/dL (12.0-16.0)
--- NOTE | 2019-09-25 16:57 | Gastroenterology Progress Note ---
Date of Service September 25, 2019 Assessment & Plan (1) Acute blood loss anemia: (2) Spleen hematoma: Doing better today No plan for OR from Surgery standpoint Continue supportive care H/H in AM, if no decline, will advance diet if ok with Dr. Jimenez Admission and Anticipated Discharge Date Admission Date: September 24, 2019 Subjective Feeling better today, though still will LUQ abdominal pain, 4/10 in intensity, radiating to left flank, improved from prior. Does state she is hungry, and, "I want real food." She denies any fevers, chills, nausea, vomiting, diarrhea, hematemesis, melena, hematochezia, lightheadedness, or dizziness. She has no further complaints. Review of Systems Review of Systems: All systems reviewed & are unremarkable except as noted in HPI & below Physical Exam Constitutional: WD/WN, vitals as above Gastrointestinal (Abdomen): Percussion/Palpation: + abdomen tender (LUQ) and abdomen soft; no guarding, abdomen not rigid and no hepatomegaly Results & Data Results & Data ([facility]) Vital Signs (Past 12 Hours) Vital Signs Temp Pulse Pulse Resp BP Pulse Ox 09/25/19 16:10 36.6 C 59 L 19 132/86 97 09/25/19 11:04 36.5 C 60 18 120/76 91 09/25/19 08:00 65 09/25/19 07:20 36.5 C 65 18 134/84 92 PG Care Time/CCT Total # of Minutes Spent Total Time Spent with Patient: Total time spent is greater than 50% in coordination of care (as documented) at patient's floor/unit and/or counseling patient: Coding Level of Care Code 20577 Subseq Hosp Care Lvl 3 Diagnoses Acute blood loss anemia D62 Spleen hematoma S36.029A
[2019-09-25] MEDS: BIMATOPROST 0.01% OP SOLN 2.5 ML BTL OPB SCH (20:45)
[2019-09-25] MEDS: TIMOLOL MALEATE 0.25% OP SOLN 5 ML BTL OPB SCH (20:47)
[2019-09-25] MEDS ORDERED: MIRTAZAPINE TAB 15 MG TAB PO SCH (21:00)
[2019-09-26] MEDS: MoRPHine SULFATE 2 MG/ML CARP IV PRN ×2 (00:25→03:26)
[2019-09-26 07:29] LABS: Hematocrit (blood only) 29.3 % (37-47); Hemoglobin 9.6 g/dL (12.0-16.0); Mean Corpuscular Hemoglobin 31.6 pg (25-34); Mean Corpuscular Hgb Conc 32.8 g/dL (32-36); Mean Corpuscular Volume 96.4 fL (80-100); Mean Platelet Volume 10.2 fL (7.4-10.4); Platelet Count 205 K/uL (130-400); RDW Coefficient of Variation 13.9 % (11.5-14.5); RDW Standard Deviation 49.3 fL (36.4-46.3); Red Blood Count 3.04 M/uL (4.2-5.4)
[2019-09-26 07:59] LABS: BUN Creatinine Ratio 12.5 (10-20); Calcium 9.1 mg/dl (8.5-10.1); Creatinine Clr Calc Pharmacy 54.2 ml/min; Est GFR (African American) 82.2; Est GFR (Non-African American) 70.9; Potassium 3.9 mmol/L (3.5-5.1)
--- NOTE | 2019-09-26 08:28 | Hospitalist Progress Note ---
Date of Service September 26, 2019 Assessment & Plan (1) Spleen hematoma: * Patient presented s/p colonoscopy on 09/[address] Barrera with abdominal pain and found to have a 2.6cm subcapsular hematoma of spleen with perisplenic hemorrhage. No extravasation identified. Questionable tiny parenchymal laceration vs artifact lower pole of spleen. * General surgery (Dr. Jimenez) as primary service -- pain management/pt/ot/dvt proph per primary * Holding ASA -- no VTE prophylaxis in setting of splenic hematoma * GI consulted --> rec to continue supportive care and advanced diet AM 09/25 if no decline in h/h * H/h initially to 9.5/29.2 on 09/24 (12.6/37 prior to colonoscopy and 11.1/34.6 on admission)--> IMPROVED TO 9.6/29.3 on AM labs, Stable * Tolerated regular diet for breakfast * Plans for discharge home this afternoon per primary service (2) Acute blood loss anemia: * Secondary to above in combination with dilutional from IVF -- improved now that no longer on IVF as above * MCV 96.7 on am labs --> B12 470 on August 28, 2019. Dec 2018 iron 81. Folate wnl on AM labs * Continue to monitor (3) DERRICK (acute kidney injury): * Cr 1.21 on admission --likely prerenal, secondary to acute blood lo ss/hematoma as above * RESOLVED -- Given IVF, discontinued 09/24 * Cr 0.84 on AM labs (4) Essential hypertension: * Chronic. * Stable, BP currently 139/87 * Continue felodipine 5mg PO BID (5) Renal lesion: * Incidental finding on CT of 12mm cortical hypodensity -- f/u outpt with nonemergent renal CT or MRI for further assessment. Pathologically indeterminant but new from 2012 imaging (6) Bilateral sacral insufficiency fracture: * Chronic low back pain. Previously opiate abuse. Bilateral sacral insufficiency fractures and age indeterminant nonunited L pubic ring fx noted on CTAP * Not symptomatic at this time * Had previously been on meloxicam but had discontinued this secondary to DERRICK with elevated Cr x 4 requiring hospitalization July 2018. Takes diclofenac as needed, not regularly --> will need to avoid NSAIDs in current setting * Had been evaluated by pain management in the past (7) Glaucoma: * Continue her usual Lumigan and Timolol eye drops (8) Aortic aneurysm: * Noted to be 3.0 x 2.8cm infrarenal abdominal aortic aneursym on CTA/P (noted on imaging August 2018 per PCP notes with rec for US follow up in 2-3 years) * --> US August 2019 with mild aortic extasia, no evidence of discrete aneursym -- measures 3cm max proximally and 27mm distally (essentially the same) * Recommended vascular evaluation and was ordered by PCP but pt not completed b/c of back pain at that time (9) DVT prophylaxis: * SCDs * Chemoproph held in setting of #1 Thank you for allowing hospitalist service to participate in the care of Ms. Claire. Hospitalist service will sign off at this time. Call with any questions/concerns. Admission and Anticipated Discharge Date Admission Date: September 24, 2019 Subjective Patient evaluated this morning. Pain still present, 3-05/25. Has not gotten morphine since yesterday. Willing to trial oral pain medications this morning to see if able to tolerate oral to be able to go home later this morning. States her sister is waiting outside to take her home. Denies fever, chills, chest pain, shortness, nausea, vomiting, dysuria, melena or hematochezia at this time. Review of Systems Review of Systems: All systems reviewed & are unremarkable except as noted in HPI & below Physical Exam Constitutional: well developed and well nourished; no acute distress Eyes: + anicteric sclerae; normal pupil size Neck: trachea midline, no thyromegaly Respiratory: normal respiratory effort, lungs clear to auscultation Cardiovascular: Rate/Rhythm: regular rate and regular rhythm Heart Sounds: no murmur Vessels: radial pulses present; no JVD Extremities: normal capillary refill; no calf tenderness and no pedal edema Gastrointestinal (Abdomen): Inspection/Auscultation: abdomen normal to inspect ion and normal bowel sounds Percussion/Palpation: + abdomen tender (LUQ on mild palpation), + guarding and abdomen soft; abdomen not rigid Musculoskeletal: no cyanosis or clubbing, extremities motor strength 5/5 Skin: no rashes, warm and dry Neurologic: moves all extremities and awake; not confused Psychiatric: A+Ox3, euthymic affect Genitourinary: no CVA tenderness Results & Data Results & Data ([facility]) Vital Signs (Past 12 Hours) Vital Signs Temp Pulse Pulse Resp BP Pulse Ox 09/26/19 08:20 69 09/26/19 07:16 36.6 C 66 19 139/87 95 09/26/19 03:19 37 C 64 16 131/81 90 09/25/19 23:29 36.5 C 75 18 127/73 91 Laboratory Results 09/26/19 09/26/19 09/26/19 Range/Units 06:54 06:54 06:54 WBC 5.80 (4.8-10.8) K/uL RBC 3.04 L (4.2-5.4) M/uL Hgb 9.6 L (12.0-16.0) g/dL Hct 29.3 L (37-47) % MCV 96.4 (80-100) fL MCH 31.6 (25-34) pg MCHC 32.8 (32-36) g/dL RDW Std Deviation 49.3 H (36.4-46.3) fL RDW Coeff of [place] 13.9 (11.5-14.5) % Plt Count 205 (130-400) K/uL MPV 10.2 (7.4-10.4) fL Sodium 140 (136-145) mmol/L Potassium 3.9 (3.5-5.1) mmol/L Chloride 107 (98-107) mmol/L Carbon Dioxide 29 (21-32) mmol/L Anion Gap 5.0 (3-11) BUN 11 (7-18) mg/dl Creatinine 0.84 (0.6-1.2) mg/dl Est Cr Clr Drug Dosing 54.2 ml/min Est GFR ( Amer) 82.2 Est GFR (Non-Af Amer) 70.9 BUN/Creatinine Ratio 12.5 (10-20) Glucose 83 (70-99) mg/dl Calcium 9.1 (8.5-10.1) mg/dl Folate 11.26 (>5.38) ng/ml Crossmatch 09/25/19 09/24/19 Range/Units 14:58 16:27 WBC (4.8-10.8) K/uL RBC (4.2-5.4) M/uL Hgb 9.3 L (12.0-16.0) g/dL Hct 29.9 L (37-47) % MCV (80-100) fL MCH (25-34) pg MCHC (32-36) g/dL RDW Std Deviation (36.4-46.3) fL RDW Coeff of [place] (11.5-14.5) % Plt Count (130-400) K/uL MPV (7.4-10.4) fL Sodium (136-145) mmol/L Potassium (3.5-5.1) mmol/L Chloride (98-107) mmol/L Carbon Dioxide (21-32) mmol/L Anion Gap (3-11) BUN (7-18) mg/dl Creatinine (0.6-1.2) mg/dl Est Cr Clr Drug Dosing ml/min Est GFR ( Amer) Est GFR (Non-Af Amer) BUN/Creatinine Ratio (10-20) Glucose (70-99) mg/dl Calcium (8.5-10.1) mg/dl Folate (>5.38) ng/ml Crossmatch See Detail PG Care Time/CCT Total # of Minutes Spent Total Time Spent with Patient: Total time spent is greater than 50% in coordination of care (as documented) at patient's floor/unit and/or counseling patient: Coding Level of Care Code 20006 Subseq Hosp Care Lvl 2 Diagnoses Spleen hematoma S36.029A Acute blood loss anemia D62 DERRICK (acute kidney injury) N17.9 Essential hypertension I10 Renal lesion N28.9 Bilateral sacral insufficiency fracture M84.48XA Encounter type: subsequent encounter Glaucoma H40.9 Aortic aneurysm I71.9 DVT prophylaxis Z29.9 (1) Bilateral sacral insufficiency fracture Encounter type: subsequent encounter
[2019-09-26] MEDS: HYDROCODONE/ACETAMOPHEN 5/325MG TAB PO PRN (08:37)
[2019-09-26] MEDS: FELODIPINE 5 MG TABCR PO SCH (08:38)
[2019-09-26] MEDS: GABAPENTIN 400 MG CAP PO SCH (08:38)
[2019-09-26] MEDS: CALCIUM 600MG + VIT D 400 IU TAB PO SCH (08:39)
[2019-09-26] MEDS: CHOLECALCIFEROL 1,000 UNITS 25 MCG TAB PO SCH (08:39)
--- NOTE | 2019-09-28 09:29 | Discharge Summary (DS) ---
PRINCIPAL DIAGNOSIS: Splenic hematoma. HISTORY OF PRESENT ILLNESS: The patient is a 68-year-old female who had undergone colonoscopy several days prior to admission with a left upper quadrant pain. Subsequent to the colonoscopy, which persisted bringing her to the Emergency Room with a CAT scan showing a splenic hematoma with fluid in the pelvis. Her hemoglobin was around 11. She was admitted to the hospital for observation over the next 2 days and did well with stabilization of her hemoglobin, although it did drop some with hydration. She was completely asymptomatic and felt stable for discharge home on 09/26/2019 to be followed in the surgical clinic within 1-2 weeks.
--- NOTE | 2019-10-05 13:30 | Coding Query ---
CODING QUERY To promote full compliance with coding requirements relating to patient care, provider participation is requested in all cases of bank runner uncertainty. Please assist us with the question(s) below: Coding Question(s): Patient admitted with abdominal pain s/p prior colonoscoy. CT /Abd on admission " complex fluid collection measuring 2.6 cm in diameter with subcapsular hemorrhage. This causes mild mass effect on spleen. Question: artifact vs: a small laceration within the pole of the spleen. Kelly splenic blood noted." Am seeking to clarify if the laceration was present on admission. If so, was it mild or moderate in severity? Thanks for your help! Patrick Giraldo [facility] Physician's Response(s): Principal Diagnosis: "that condition established after study, to be chiefly responsible for occasioning the admission of the patient to the hospital for care." Co-Existing Principal Diagnosis: "when two or more diagnoses equally meet the criteria for principal diagnosis as determined by the circumstances of admission, diagnostic work up, and/or therapy provided, and the Alphabetic Index, Tabular List, or another coding guideline does not provide sequencing direction, any one of the diagnoses may be sequenced first." "When the physician has documented what appears to be a current diagnosis in the body of the record, but has not included the diagnosis in the final diagnostic statement, the physician should be asked whether the diagnosis should be added." (Source Coding Clinic 2 QTR90. p3-4) RUSSEL
== END 2019-09-26 09:04 | disposition home or self-care (01) | DRG 920 ==
LOC: ED 13:59 → 2S 16:45